=== PATIENT | male | born 1955 | race Caucasian/White ===

== ENCOUNTER 2022-06-09 14:31 | Observation (INO) ==
[2022-06-09 16:53] LABS: Basophils # (auto) 0.03 K/uL (0-0.2); Basophils % (auto) 0.4 %; Eosinophils # (auto) 0.22 K/uL (0-0.50); Eosinophils % (auto) 3.1 %; Hematocrit (blood only) 38.1 % (40.1-51.0); Hemoglobin 12.7 g/dl (14.0-18.0); Immature Granulocytes # (auto) 0.04 K/uL (0.00-0.02); Immature Granulocytes % (auto) 0.6 %; Lymphocytes # (auto) 0.96 K/uL (1.2-3.4); Lymphocytes % (auto) 13.7 %; Mean Corpuscular Hemoglobin 27.1 pg (25.0-34.0); Mean Corpuscular Hgb Conc 33.3 g/dL (32.0-36.0); Mean Corpuscular Volume 81.2 fL (80.0-100.0); Mean Platelet Volume 9.1 fL (9.4-12.4); Monocytes % (auto) 7.1 %; Neutrophils # (auto) 5.25 K/uL (1.4-6.5); Neutrophils % (auto) 75.1 %; Platelet Count 194 K/uL (130-400); RDW Coefficient of Variation 14.6 % (11.5-14.5); RDW Standard Deviation 43.1 fL (36.4-46.3); Red Blood Count 4.69 M/uL (4.63-6.08)
[2022-06-09 17:05] LABS: Appearance Urine Clear (Clear); Bacteria Urine Automated Negative (Negative); Bilirubin Urine Negative (Negative); Blood Urine 2+ (Negative); Color Urine Yellow; Glucose Urine UA Negative (Negative); Ketones Urine Negative (Negative); Leukocyte Esterase Urine Negative (Negative); Nitrite Urine Negative (Negative); Protein Urine 2+ (Negative); Specific Gravity Urine 1.012 (1.000-1.030); Urobilinogen Urine Negative (Negative); pH Urine 5.5 (4.5-7.5)
[2022-06-09 17:19] LABS: Albumin Level 3.5 gm/dl (3.4-5.0); BUN Creatinine Ratio 15.3 (10-20); Bilirubin,Total 0.5 mg/dl (0.2-1.0); Calcium 8.9 mg/dl (8.5-10.1); Creatinine Clr Calc Pharmacy 52.6 ml/min; Est GFR (African American) 39.3 ml/min; Est GFR (Non-African American) 33.9 ml/min; Globulin 3.4 gm/dl (2.5-4.0); Potassium 3.3 mmol/L (3.5-5.1); Total Protein 6.9 gm/dl (6.0-8.3)
[2022-06-09] MEDS ORDERED: VANCOMYCIN HCL 2,750 MG in SODIUM CHLORIDE 0.9% 500 ML IV ONE (18:36)
[2022-06-09] MEDS ORDERED: VANCOMYCIN CONSULT ACTIVE PRN ×2 (18:36→23:48)
[2022-06-09] MEDS ORDERED: CEFEPIME 2,000 MG/20 ML VIAL IV STA (18:36)
[2022-06-09] MEDS ORDERED: metroNIDAZOLE 500 MG/100 ML BAG IV STA (18:36)
[2022-06-09] MEDS ORDERED: ONDANSETRON INJ 2 MG/ML 2 ML VIAL IV STA (18:40)
[2022-06-09] MEDS ORDERED: MoRPHine SULFATE 4 MG/ML 1 ML CARP\\VIAL IV STA (18:40)
[2022-06-09] MEDS ORDERED: MoRPHine SULFATE 4 MG/ML 1 ML CARP\\VIAL IV PRN (18:40)
--- NOTE | 2022-06-09 18:40 | Emergency Department Note ---
Impression & Plan Abscess of scrotum ED Provider Note NAME: MERVAT RUTLEDGE AGE: 67 SEX: M : 1955 ARRIVES VIA: Walk-In INFORMANT: Patient, ED PROVIDER(S): David Patel DO CHIEF COMPLAINT: Scrotal pain HPI: The patient is a 67-year-old male who presented to the emergency department for evaluation of scrotal pain. The patient states that initially this started out as just a small bump on his left testicle. The patient states he was seen by his family doctor and then by urology. He has had multiple studies including ultrasound as well as CAT scan. He most recently had an ultrasound today because of symptoms started to worsen. He came to the emergency department after the ultrasound was felt to be consistent with possible worsening abscess. The patient states he has no fever. He has no vomiting. He has noticed his blood sugars are little high. He has not had any redness. He denies having any rectal bleeding. He said no recent rectal surgery. ROS: See above HPI for pertinent positives & negatives. A total of 10 systems reviewed and were otherwise negative. PAST MEDICAL HISTORY: See Below PAST SURGICAL HISTORY: See Below FAMILY HISTORY: See Below SOCIAL HISTORY: See Below HOME MEDICATIONS: See Below ALLERGIES: See Below VITALS: See Below PHYSICAL EXAMINATION: GENERAL: Patient is awake alert in no acute distress patient is resting comfortably and showing no signs of anxiety EYES: The conjunctivae are clear. The pupils are round and reactive. EARS, NOSE, MOUTH AND THROAT: The nose is without any evidence of any deformity. Mucous membranes are moist. Tongue is midline. NECK: The neck is nontender and supple. RESPIRATORY: Normal respiratory effort is noted there is no evidence of wheezing rhonchi or rales CARDIOVASCULAR: Regular rate and rhythm noted there no murmurs rubs or gallops normal S1 normal S2. GASTROINTESTINAL: The abdomen is soft. Abdomen is nontender. : There is tenderness and induration noted on the left lateral scrotum. It is fluctuant. There is mild overlying erythema but no necrotic tissue. MUSCULOSKELETAL/EXTREMITIES: There is no evidence of gross deformity full range of motion is noted in the hips and shoulders. SKIN: There is no obvious evidence of any rash. NEUROLOGIC: Patient is awake alert and oriented x3 MEDICAL DECISION MAKING: The patient is a 67-year-old diabetic who presented to the emergency department with findings consistent with a scrotal abscess. The patient has had an ongoing outpatient work-up for this abscess. He has had ultrasound and CAT scan. He has been evaluated by his primary care physician. He was treated with antibiotics. The patient was not getting better in fact he was getting worse. The patient was sent for an outpatient ultrasound and after the ultrasound was done the patient was advised to come to the emergency department. The patient's primary urologist did call me and asked me to repeat the CAT scan as there is strong concern that given the patient's past medical history this could be consistent with a deep space infection such as gangrene. I did do a needle aspiration to send a culture. The patient was treated with IV antibiotics. He was also offered pain medication. He was treated with IV fluids. I discussed patient's laboratory and radiographic studies with him. I also discussed his case with the on-call urologist as well as the on-call [facility] hospitalist. They have agreed to evaluate the patient in the emergency department for further management and disposition. Triage Nursing notes reviewed. Prior medical records reviewed Vital Signs: reviewed and remarkable for elevated blood pressure Differential diagnosis: Cellulitis, abscess, MRSA infection, DVT, necrotizing fasciitis, dermatitis, drug eruption, allergic reaction, as well as other pathologies. ER treatment provided: See below Diagnostics interpreted by me: ECG: none Cardiac Monitoring: An order was placed for continuous cardiac monitoring. The monitor shows a rate of 74 bpm with sinus rhythm. Laboratory studies: As stated above and show below. Imaging studies: See below. Radiographic imaging was reviewed by myself Consultation(s): I discussed this case with Benjamin who is on for the urology group. They will evaluate the patient in the emergency department. I discussed this case with Dr. Tolliver [facility]. Past Med/Surg History Medical History Apical mural thrombus Ascending aortic aneurysm Chronic kidney disease, stage 3 Chronic kidney disease, stage 4 (severe) Chronic systolic CHF (congestive heart failure) Coronary artery disease DVT (deep venous thrombosis) Hypercholesterolemia Hypertension Ischemic cardiomyopathy Myocardial infarct Severe obstructive sleep apnea Type 2 diabetes mellitus Vitamin D deficiency Surgical History History of tonsillectomy S/P coronary artery stent placement Family History Mother Colorectal cancer Diabetes Heart disease Hypertension Myocardial infarction Father Osteoarthritis Grandfather (Maternal) Asthma Denies family history of Ovarian cancer Prostate cancer Alzheimer disease Depression Kidney disease Breast cancer Lung cancer COPD (chronic obstructive pulmonary disease) Stroke Social History Smoking Status: Never smoker Second Hand Exposure: No; Hx Alcohol Use: No Hx Substance Use: No Preferred Language: Cape Verdean Communication Ability: Effective Hearing Ability: Normal Children'S Choir Director Required: No marital status: Current Living Situation: Family Current Living Situation Comment: spouse and son current occupational status: retired How many Children do You have: 2 Feels Safe at Home: Yes Childhood Exposure to Second-Hand Smoke: Yes Dental Care, Regularly: Yes Seatbelt Use: sometimes Sunscreen Use: Yes Allergies Allergies Allergy/AdvReac Type Severity Reaction Status Date / Time latex Allergy Mild RASH Verified 06/09/22 12:05 penicillin V Allergy Mild NOT SURE Verified 06/09/22 12:05 adhesive tape Allergy Unknown Verified 06/09/22 12:05 saxagliptin [From Onglyza] Allergy Unknown Verified 06/09/22 12:05 shellfish derived Allergy Unknown ANAPHYLAXIS Verified 06/09/22 12:05 Home Meds Home Medications Medication Instructions Recorded Confirmed sacubitril 97 mg-valsartan 103 mg 0.5 tab PO BID 12/08/21 06/09/22 tablet (Entresto) Previous Rx's Medication Instructions Recorded pen needle, diabetic 31 gauge x #200 ea 07/12/19/16" (BD Ultra-Fine Short Pen Needle) CPAP Supplies #1 ea 02/04/20 clopidogrel 75 mg tablet 75 mg PO DAILY #90 tabs 06/07/21 rosuvastatin 40 mg tablet 40 mg PO DAILY #90 tabs 07/28/21 ergocalciferol (vitamin D2) 1,250 50,000 unit PO WEEKLY #14 caps 12/08/21 mcg (50,000 unit) capsule apixaban 5 mg tablet (Eliquis) 5 mg PO BID #180 tabs 12/09/21 amlodipine 10 mg tablet 5 mg PO DAILY #90 tabs 02/01/22 allopurinol 100 mg tablet 100 mg PO DAILY #90 tabs 02/25/22 blood-glucose meter,continuous #1 ea 03/09/22 (Dexcom G6 Propulsion Machinery Service Engineer) blood-glucose sensor (Dexcom G6 #3 ea 03/09/22 Sensor device) blood-glucose transmitter (Dexcom #1 ea 03/09/22 G6 Transmitter device) carvedilol 25 mg tablet 25 mg PO BID #180 tabs 03/11/22 bumetanide 2 mg tablet See Rx Instructions .Route 04/27/22 .COMPLEX #270 tabs insulin glargine 100 unit/mL (3 42 unit (0.42 mL) subcut BID #60 mL 05/04/22 mL) subcutaneous pen (Lantus Solostar U-100 Insulin) insulin aspart U-100 100 unit/mL 32 unit (0.32 mL) subcut BID #45 mL 05/30/22 (3 mL) subcutaneous pen (Novolog FlexPen U-100 Insulin aspart) Bifidobacterium infantis 4 mg 4 mg PO BID #60 caps 06/09/22 capsule (Align) clindamycin HCl 300 mg capsule 300 mg PO Q6H #40 caps 06/09/22 Results & Data (ED) Vital Signs Vital Signs - 24 hr 06/09/22 14:44 06/09/22 18:36 06/09/22 21:49 Temperature 36.3 C L Temperature Source Temporal Artery Scan Pulse Rate 80 Pulse Rate [Apical] 75 74 Pulse Rhythm [Apical] Regular Pulse Strength [Apical] Normal Respiratory Rate 16 16 20 Respiratory Effort / Characteristics Non-Labored Non-Labored Non-Labored Respiratory Depth Normal Normal Normal Respiratory Pattern Regular Regular Blood Pressure 135/64 Blood Pressure [Left Arm] 158/106 H 163/97 H Blood Pressure Mean 87 Blood Pressure Mean [Left Arm] 123 119 Blood Pressure Position [Left Arm] Lying Pulse Oximetry 93 97 95 Oxygen Delivery Method Room Air Room Air Room Air Sepsis Recent Fever Within 48 Hours No Sepsis New/Unexplained Change in Mental Status Yes Sepsis Action Taken by Nursing No Action Required Home Medications Current Medication List: was personally reviewed by me Laboratory Data Attestation: I reviewed the patient's lab results. 06/09/22 16:30 06/09/22 16:30 Lab Results 06/09/22 06/09/22 06/09/22 Range/Units 16:30 16:30 16:30 WBC 7.00 (4.8-10.8) K/ul RBC 4.69 (4.63-6.08) M/uL Hgb 12.7 L (14.0-18.0) g/dl Hct 38.1 L (40.1-51.0) % MCV 81.2 (80.0-100.0) fL MCH 27.1 (25.0-34.0) pg MCHC 33.3 (32.0-36.0) g/dL RDW Std Deviation 43.1 (36.4-46.3) fL RDW Coeff of Summer 14.6 H (11.5-14.5) % Plt Count 194 (130-400) K/uL MPV 9.1 L (9.4-12.4) fL Immature Gran % (Auto) 0.6 % Neut % (Auto) 75.1 % Lymph % (Auto) 13.7 % Donley % (Auto) 7.1 % Eos % (Auto) 3.1 % Baso % (Auto) 0.4 % Neut # (Auto) 5.25 (1.4-6.5) K/uL Lymph # (Auto) 0.96 L (1.2-3.4) K/uL Donley # (Auto) 0.50 (0.24-0.82) K/uL Eos # (Auto) 0.22 (0-0.50) K/uL Baso # (Auto) 0.03 (0-0.2) K/uL Immature Gran # (Auto) 0.04 H (0.00-0.02) K/uL ESR 61 H (0-20) mm/hr Sodium 142 (136-145) mmol/L Potassium 3.3 L (3.5-5.1) mmol/L Chloride 105 (98-107) mmol/L Carbon Dioxide 32 (21-32) mmol/L Anion Gap 5 (3-11) BUN 30 H (6-23) mg/dl Creatinine 1.96 H (0.6-1.4) mg/dl Est Cr Clr Drug Dosing 52.6 ml/min Est GFR ( Amer) 39.3 ml/min Est GFR (Non-Af Amer) 33.9 ml/min BUN/Creatinine Ratio 15.3 (10-20) Glucose 143 H (70-99(Fasting)) mg/dl POC Glucose (70-99) mg/dl Calcium 8.9 (8.5-10.1) mg/dl Total Bilirubin 0.5 (0.2-1.0) mg/dl AST 15 (13-39) U/L ALT 15 (7-52) U/L Alkaline Phosphatase 95 (34-104) U/L C-Reactive Protein (0-0.5) mg/dl Total Protein 6.9 (6.0-8.3) gm/dl Albumin 3.5 (3.4-5.0) gm/dl Globulin 3.4 (2.5-4.0) gm/dl Albumin/Globulin Ratio 1.0 (0.9-2) Procalcitonin (0-0.5) ng/ml Urine Color Urine Appearance (Clear) Urine pH (4.5-7.5) Ur Specific [place] (1.000-1.030) Urine Protein (Negative) Urine Glucose (UA) (Negative) Urine Ketones (Negative) Urine Blood (Negative) Urine Nitrite (Negative) Urine Bilirubin (Negative) Urine Urobilinogen (Negative) Ur Leukocyte Esterase (Negative) Urine WBC (Auto) (0-5) /hpf Urine RBC (Auto) (0-4) /hpf U Hyaline Cast (Auto) (0-5) /lpf U Epithel Cells (Auto) (0-5) /lpf Urine Bacteria (Auto) (Negative) SARS-CoV-2, RNA, NAAT (NEGATIVE) 06/09/22 06/09/22 06/09/22 Range/Units 16:30 16:30 16:37 WBC (4.8-10.8) K/ul RBC (4.63-6.08) M/uL Hgb (14.0-18.0) g/dl Hct (40.1-51.0) % MCV (80.0-100.0) fL MCH (25.0-34.0) pg MCHC (32.0-36.0) g/dL RDW Std Deviation (36.4-46.3) fL RDW Coeff of Summer (11.5-14.5) % Plt Count (130-400) K/uL MPV (9.4-12.4) fL Immature Gran % (Auto) % Neut % (Auto) % Lymph % (Auto) % Donley % (Auto) % Eos % (Auto) % Baso % (Auto) % Neut # (Auto) (1.4-6.5) K/uL Lymph # (Auto) (1.2-3.4) K/uL Donley # (Auto) (0.24-0.82) K/uL Eos # (Auto) (0-0.50) K/uL Baso # (Auto) (0-0.2) K/uL Immature Gran # (Auto) (0.00-0.02) K/uL ESR (0-20) mm/hr Sodium (136-145) mmol/L Potassium (3.5-5.1) mmol/L Chloride (98-107) mmol/L Carbon Dioxide (21-32) mmol/L Anion Gap (3-11) BUN (6-23) mg/dl Creatinine (0.6-1.4) mg/dl Est Cr Clr Drug Dosing ml/min Est GFR ( Amer) ml/min Est GFR (Non-Af Amer) ml/min BUN/Creatinine Ratio (10-20) Glucose (70-99(Fasting)) mg/dl POC Glucose (70-99) mg/dl Calcium (8.5-10.1) mg/dl Total Bilirubin (0.2-1.0) mg/dl AST (13-39) U/L ALT (7-52) U/L Alkaline Phosphatase (34-104) U/L C-Reactive Protein 3.09 H (0-0.5) mg/dl Total Protein (6.0-8.3) gm/dl Albumin (3.4-5.0) gm/dl Globulin (2.5-4.0) gm/dl Albumin/Globulin Ratio (0.9-2) Procalcitonin 0.09 (0-0.5) ng/ml Urine Color Yellow Urine Appearance Clear (Clear) Urine pH 5.5 (4.5-7.5) Ur Specific [place] 1.012 (1.000-1.030) Urine Protein 2+ H (Negative) Urine Glucose (UA) Negative (Negative) Urine Ketones Negative (Negative) Urine Blood 2+ H (Negative) Urine Nitrite Negative (Negative) Urine Bilirubin Negative (Negative) Urine Urobilinogen Negative (Negative) Ur Leukocyte Esterase Negative (Negative) Urine WBC (Auto) 1-5 (0-5) /hpf Urine RBC (Auto) 5-10 H (0-4) /hpf U Hyaline Cast (Auto) 5-10 H (0-5) /lpf U Epithel Cells (Auto) 10-20 H (0-5) /lpf Urine Bacteria (Auto) Negative (Negative) SARS-CoV-2, RNA, NAAT (NEGATIVE) 06/09/22 06/09/22 Range/Units 18:24 21:11 WBC (4.8-10.8) K/ul RBC (4.63-6.08) M/uL Hgb (14.0-18.0) g/dl Hct (40.1-51.0) % MCV (80.0-100.0) fL MCH (25.0-34.0) pg MCHC (32.0-36.0) g/dL RDW Std Deviation (36.4-46.3) fL RDW Coeff of Summer (11.5-14.5) % Plt Count (130-400) K/uL MPV (9.4-12.4) fL Immature Gran % (Auto) % Neut % (Auto) % Lymph % (Auto) % Donley % (Auto) % Eos % (Auto) % Baso % (Auto) % Neut # (Auto) (1.4-6.5) K/uL Lymph # (Auto) (1.2-3.4) K/uL Donley # (Auto) (0.24-0.82) K/uL Eos # (Auto) (0-0.50) K/uL Baso # (Auto) (0-0.2) K/uL Immature Gran # (Auto) (0.00-0.02) K/uL ESR (0-20) mm/hr Sodium (136-145) mmol/L Potassium (3.5-5.1) mmol/L Chloride (98-107) mmol/L Carbon Dioxide (21-32) mmol/L Anion Gap (3-11) BUN (6-23) mg/dl Creatinine (0.6-1.4) mg/dl Est Cr Clr Drug Dosing ml/min Est GFR ( Amer) ml/min Est GFR (Non-Af Amer) ml/min BUN/Creatinine Ratio (10-20) Glucose (70-99(Fasting)) mg/dl POC Glucose 91 (70-99) mg/dl Calcium (8.5-10.1) mg/dl Total Bilirubin (0.2-1.0) mg/dl AST (13-39) U/L ALT (7-52) U/L Alkaline Phosphatase (34-104) U/L C-Reactive Protein (0-0.5) mg/dl Total Protein (6.0-8.3) gm/dl Albumin (3.4-5.0) gm/dl Globulin (2.5-4.0) gm/dl Albumin/Globulin Ratio (0.9-2) Procalcitonin (0-0.5) ng/ml Urine Color Urine Appearance (Clear) Urine pH (4.5-7.5) Ur Specific [place] (1.000-1.030) Urine Protein (Negative) Urine Glucose (UA) (Negative) Urine Ketones (Negative) Urine Blood (Negative) Urine Nitrite (Negative) Urine Bilirubin (Negative) Urine Urobilinogen (Negative) Ur Leukocyte Esterase (Negative) Urine WBC (Auto) (0-5) /hpf Urine RBC (Auto) (0-4) /hpf U Hyaline Cast (Auto) (0-5) /lpf U Epithel Cells (Auto) (0-5) /lpf Urine Bacteria (Auto) (Negative) SARS-CoV-2, RNA, NAAT NEGATIVE (NEGATIVE) Administered Medications Discontinued Medications Metronidazole (Flagyl) 500 mg in 100 mls @ 100 mls/hr IV NOW STA Stop: 06/09/22 19:35 Last Infusion: 06/09/22 20:51 Dose: 0 mls/hr Documented By: Admin: 06/09/22 19:47 Dose: 100 mls/hr Documented By: ANA Cefepime HCl (Maxipime) 2,000 mg in 20 mls @ 5 mls/min IV NOW STA; Protocol Stop: 06/09/22 18:39 Last Admin: 06/09/22 18:51 Dose: 5 mls/min Documented By: JES Vancomycin HCl 2,750 mg/ (Sodium Chloride) 555 mls @ 200 mls/hr IV NOW ONE Stop: 06/09/22 21:23 Last Admin: 06/09/22 20:58 Dose: 200 mls/hr Documented By: ARMIN Acetaminophen (Ofirmev) 1,000 mg in 100 mls @ 400 mls/hr IV NOW STA Stop: 06/09/22 19:17 Last Infusion: 06/09/22 19:35 Dose: 0 mls/hr Documented By: Admin: 06/09/22 19:06 Dose: 400 mls/hr Documented By: JES Lidocaine HCl (Xylocaine 1%/Sod Bicarb 20 Ml Vial) 20 ml INFIL NOW ONE Stop: 06/09/22 19:39 Last Admin: 06/09/22 21:01 Dose: 20 ml Documented By: [id number] Morphine Sulfate (Morphine Sulfate 4 Mg/Ml 1 Ml Carp\\Vial) 4 mg IV NOW STA Stop: 06/09/22 18:41 Last Admin: 06/09/22 19:02 Dose: Not Given Documented By: JES Ondansetron HCl (Ondansetron Inj 2 Mg/Ml 2 Ml Vial) 4 mg IV NOW STA Stop: 06/09/22 18:41 Last Admin: 06/09/22 19:02 Dose: Not Given Documented By: JES Imaging Data Radiologist's Impression: Abdomen/Pelvis CT 06/09/22 17:38 CT abd pelvis wo con CLINICAL HISTORY: abscess TECHNIQUE: Helical axial images of the abdomen and pelvis were obtained. Automated dose lowering techniques and/or adjustment according to patient size were utilized for this exam. This exam was performed without intravenous contrast. CT DOSE: 1408.87 mGycm COMPARISON: Comparison is made to CT abdomen pelvis 05/04/2022 FINDINGS: Lower chest: Stable 2 mm nodule in the left lower lobe (series 3 image 31). Liver: Unremarkable. No focal lesions are seen. Gallbladder and biliary tree: No calcified gallstones. Normal caliber wall. No intra- or extrahepatic biliary ductal dilation. Pancreas: Unremarkable, no focal lesions. Spleen: Unremarkable. Adrenals: Stable right myelolipoma. Kidneys and ureters: Perinephric stranding is noted bilaterally. Bladder: Diffuse homogeneous wall thickening is seen. There is may represent chronic outlet obstruction. Reproductive organs: Unremarkable. Bowel: Diverticulosis is noted without diverticulitis. The appendix is normal. Lymph nodes Retroperitoneal: Unremarkable. Pelvic: Unremarkable. Mesenteric: Unremarkable. Peritoneum: Normal. Vessels: Atherosclerotic calcifications are seen. Abdominal wall: In the left scrotal wall, there is a 34 mm fluid density with surrounding soft tissue swelling. Bones: Degenerative changes in the visualized spine. IMPRESSION: 1. There is a left groin abscess/phlegmon with surrounding soft tissue swelling. 2. Diverticulosis without diverticulitis. 3. Additional findings as above. ACT 112: Negative or not required by law. Electronically signed by: Garrett Caceres M.D. 06/09/2022 6:36 PM Discharge Plan Visit Data Chief Complaint: Groin Pain Stated Complaint: ABCESS IN GROIN AREA ED Provider: David Patel Discharge Problem: Abscess of scrotum Patient Disposition: Being Evaluated by Hospitalist Forms Stand Alone Forms: My [facility] Valuation App Prescriptions Prescriptions: No Action (DME) pen needle, diabetic [BD Ultra-Fine Short Pen Needle] 31 gauge x 5/16" needle See Dose Instructions .ROUTE .MEDSUPPLY Qty: 200 5RF Dose Instruction: As directed Rx Instructions: use three times daily as directed (DME) CPAP Supplies See Rx Instructions .Route .MEDSUPPLY Qty: 1 0RF Rx Instructions: Full face mask with head gear, Airsupply tubing, disposable and nondisposable filters, interface and water chamber DX:OSMAN clopidogrel 75 mg tablet 75 mg PO DAILY Qty: 90 3RF rosuvastatin 40 mg tablet 40 mg PO DAILY Qty: 90 3RF Eliquis 5 mg tablet 5 mg PO BID Qty: 180 3RF allopurinol 100 mg tablet 100 mg PO DAILY Qty: 90 3RF carvedilol 25 mg tablet 25 mg PO BID Qty: 180 3RF Rx Instructions: must administer with a meal/food bumetanide 2 mg tablet See Rx Instructions .ROUTE .COMPLEX Qty: 270 0RF Hold Instructions: MEAGHAN Dose Instruction: TAKE 1 & 1/2 (ONE & ONE-HALF) TABLETS BY MOUTH TWICE DAILY Rx Instructions: TAKE 1 & 1/2 (ONE & ONE-HALF) TABLETS BY MOUTH TWICE DAILY insulin glargine [Lantus Solostar U-100 Insulin] 100 unit/mL (3 mL) insulin pen 42 unit subcut BID Qty: 60 3RF insulin aspart U-100 [Novolog FlexPen U-100 Insulin] 100 unit/mL (3 mL) insulin pen 32 unit subcut BID Qty: 45 3RF (DME) Dexcom G6 Transmitter Device See Rx Instructions .Route Qty: 1 0RF Rx Instructions: As directed check BS 4x/day Dx E11.9 (DME) Dexcom G6 Sensor Device See Rx Instructions .Route Qty: 3 5RF Rx Instructions: As directed Test 4 x a day and Dx E11.9 (DME) Dexcom G6 Propulsion Machinery Service Engineer Misc See Rx Instructions .Route Qty: 1 0RF Rx Instructions: As directed test 4 x/day and Dx E11.9 Entresto 97-103 mg tablet 0.5 tab PO BID Hold Instructions: MEAGHAN/Hyperkalemia ergocalciferol (vitamin D2) 1,250 mcg (50,000 unit) capsule 50,000 unit PO WEEKLY Qty: 14 2RF amlodipine 10 mg tablet 5 mg PO DAILY Qty: 90 1RF clindamycin HCl 300 mg capsule 300 mg PO Q6H Qty: 40 0RF Align 4 mg capsule 4 mg PO BID Qty: 60 0RF Referrals Referrals: Chava Stark MD [Primary Care Provider] -
[2022-06-09] MEDS ORDERED: ACETAMINOPHEN 1,000 MG/100 ML VIAL IV STA (19:03)
[2022-06-09] MEDS ORDERED: XYLOCAINE 1%/SOD BICARB 20 ML VIAL INFIL ONE (19:38)
--- NOTE | 2022-06-09 20:10 | Urology Consultation ---
Date of Consultation June 09, 2022 Assessment & Plan (1) Perineal abscess: Due to the patient's clinical presentation and findings on imaging along with the fact that he is diabetic the treating emergency room physician is having the patient mid on the hospitalist service. We recommend proceeding as follows: I discussed the case with Dr. Robledo of urology my attending physician and he is planning on performing a bedside incision and drainage of the affected area this evening. He says that he will place appropriate wound packing. He then notes that he will reexamine the wound tomorrow and determine if the patient will need a more formal washout in the emergency department. Would recommend continuing broad-spectrum antibiotics. Appropriate cultures have been sent by the treating emergency room physician and antibiotics to be further tailored by the these results The patient is diabetic and adequate glycemic control be optimal to prevent good healing. Additional recommendations be forthcoming based on findings at time of incision and drainage as well as the patient's clinical course as unfolds Additional recommendations as recommended by the primary service Attending note: Patient independently assessed, examined, evaluated, and interviewed. Agree with note as above. Patient's imaging has been reviewed interpreted by myself. Patient has a approximately 3.8 cm abscess in the left scrotal/inguinal region with tracking along the inguinal tract. No signs of crepitus on examination. No signs of air or other issues or signs of infection traveling along fascial lines. Patient had undergone attempted aspiration in the ER. Had been placed on broad-spectrum antibiotics. Initially patient had presented for imaging from his primary care doctor concern for abscess was seen on ultrasound. Patient presented to the ER with possible abscess with concern for development of more significant infection with patient's known diabetes, obesity, and other chronic medical issues. Patient is in chronic kidney disease. Has previously had abscesses in the groin. Patient's creatinine is currently 1.96. This is actually better than his creatinine has been at times. His white count has not been considerably elevated. Came back as 7.0. Patient is on Eliquis at home. Took a dose this morning. Has not had considerable bleeding. Hemoglobin was assessed currently 12.7. Patient CT scan once completed was reviewed interpreted by myself as well. Findings were consistent with what was seen on the ultrasound however more concerning for an abscess cavity. Discussed this extensively with patient. Reviewed different options including possible surgical intervention. Discussed options such as bedside procedure for drainage of lesion. On assessment patient had no signs of skin necrosis. Did have a severely indurated mildly tender and fluctuant area in the inguinal/scrotal junction region with tracking down towards the scrotum and up into the inguinal region. Moderate erythema was noted. Patient had been given broad-spectrum antibiotics by the ER. Has been dealing with previous abscesses in the past. Patient's complicated medical and surgical history was reviewed and summarized as above. Please see the patient's history section for a full report. Patient's systems were all reviewed. Pertinent positive negatives are found in the HPI or in the review of systems section. Discussed extensively options for bedside incision and drainage patient was most interested in proceeding with this. Patient agreed to sign consent. This was witnessed by the nursing staff at the ER. A timeout was completed confirming the right patient location and plan for incision and drainage of scrotal abscess. Incision and drainage of scrotal abscess, bedside Indications for the procedure: Significant scrotal abscess Risks, benefits, alternatives, risk of bleeding, infection risks and possible injury to the genital, scrotum, or testicle were discussed with the patient. Consent was obtained prior to the procedure and is detailed in the patient's record. Prior to the start of the procedure, a time out was taken and the identity of the patient was confirmed via name and date of by the patient. The correct site and the procedure to be performed were confirmed. Procedure Note: The patient was placed in the supine position. The patient was prepped and draped in the usual sterile fashion using Betadine The spermatic cord as well as the area of abscess on the left side was isolated. A 1% lidocaine solution was injected first into the skin above the fluctuant area and then an additional lidocaine was injected into the spermatic cord and surrounding tissues after aspirating to confirm no bleeding. This was tolerated well. There was some mild burning with the injection. Patient did have a mild amount of burning during the remainder of the procedure. After adequate time for the local anesthetic to take effect. The area was once again prepped again with Betadine. A scalpel was used to make a an approximately 1.5 cm incision into the scrotal tissue. A small amount of bloody drainage was appreciated. This was probed with a culture swab. A finger was then utilized to probe and assess the wound. Numerous loculations were appreciated. On breaking of the more deep loculations towards the scrotal region a large pocket of significantly purulent material was appreciated drainage from the wound. The material was foul-smelling and a dark brown/old blood appearing fluid. This was aspirated utilizing a empty syringe. Both the wound swab as well as the aspirated fluid was sent for culture analysis. Further probing with the finger additional loculations were able to be destroyed and further broken up. Of the wound cavity was inspected. Copious flushings were completed utilizing normal saline. Additional fluid and debris was able to be irrigated free. No signs of necrotic tissue or significant issues within the wound. The final wound dimension cavity was approximately a circular region running from the scrotum up into the inguinal region and was approximately 5 cm in diameter. Additional flushing was completed. The patient was cleaned. He had tolerated the procedure without major issue and only had mild burning during the process. Did not have significant issues or major bleeding during the procedure. Patient is known to be on Eliquis. He had taken this this morning. No major areas of bleeding were noted. The tissue was noted to be healthy appearing without signs of significant necrosis or devascularization. With the wound thoroughly cleaned. The area was inspected a final time. Iodoform packing was then placed into the wound cavity. The iodoform packing was placed with a single piece of folded in half with the 2 ends outside of the wound to allow for easy removal. The entire abscess cavity was able to be packed well without major issue. The area was cleaned a final time. Gauze was placed over the wound. The patient tolerated the procedure well. There were no complications. Patient Status: The patient tolerated the procedure well. Complications: No complications. Had Discussed risks and benefits of procedure, consisting but not limited to infection, bleeding, or injury. Discussed possible development of necrotizing fasciitis and more significant infection with necrosis and possible considerable issues with scrotal abscesses in a diabetic with multiple comorbidities. Long conversation of post-operative care and management. Discussed wound care and activity afterwards. Patient is going to be admitted to the hospitalist team. He will continue on broad-spectrum antibiotics. We will await the culture results. We will place a referral to wound care to assist in wound management in the post procedure.. Will have patient's packing removed tomorrow and repacked at bedside either with the wound care team or with our nursing. Patient will likely need to be set up for packing exchange and continued wound management as an outpatient. In the interim patient can utilize conservative measures such as scrotal elevation as well as ice for pain and discomfort. We will likely need to continue IV antibiotics until able to de-escalate to an oral antibiotic. We will likely need to complete the complete antibiotic course in order to fully clear any potential infection issues. If any issues or bleeding or pain, Ice to be used 20 mins on and 20 mins off as needed. Until patient is healed and wound has resolved, would avoid over activity or any contact sports/activity. Okay to wash or shower starting tomorrow. Would recommend avoiding long soak, bath, or swimming. Patient may be able to utilize sitz bath's if needed. Monitor for swelling or redness or pain. Call with any issues or fevers. Will monitor the patient with plans to reassess if issues worsen or more considerable infection develops. Will await consultation from the wound care nurses and develop a final plan for wound care after this procedure. Otherwise we will monitor with plans for follow-up in the office likely in 1 to 2 weeks for reassessment History of Present Illness Reason for Consultation: Scrotal/left groin abscess History of Present Illness This is a 67-year-old male who presented to the emergency department due to concern for a scrotal/left groin abscess. The patient says that his initial problems began in mid April 2022. The patient says that he had an itch in his left groin and upon scratching it subsequently thereafter he developed a lump in his left groin/scrotum. At that time the patient had a CT scan of his abdomen pelvis on 05/04/2022 which showed no findings indicative of an infection. He ultimately had a scrotal ultrasound on 05/04/2022 that showed that he had concern for developing scrotal abscess measuring 7 x 7 x 9 mm. The patient says that due to the small size he was not placed on antibiotics and clinical monitoring was employed. He says that he felt that the area may have improved and was not really giving him any problems. The patient says that he did have routine follow-up employed with his family physician this week. The patient notes that on 06/03/2022 he did undergo a CT scan of the abdomen pelvis that again showed no findings indicative of infection. He did have a repeat scrotal ultrasound today that showed the patient had findings concerning for an enlarging abscess measuring 3.5 x 2.4 x 2.5 cm. Because of these findings he was referred by his family physician to the emergency department. In the emergency department today the patient did have a CT scan of the abdomen pelvis that showed the patient had a left groin abscess/phlegmon with surrounding soft tissue swelling. Labs were performed that showed a CBC with a white blood cell count and platelet count within the normal range. Hemoglobin hematocrit were 12.7 and 38.1. Chemistry profile showed sodium was 142 with a potassium of 3.3. His BUN and creatinine were 30 and 1.9. This level of renal function was near his baseline. There is no elevation of patient's LFTs. Urinalysis was not indicative of infection and a COVID test was negative. The patient notes that the area in his left groin is not giving him much in the way of problems. He says that it is warm but is not painful. He says that he has had no drainage whatsoever since this problem began. He has not had any fevers, shakes, or chills. He notes he is not diabetic. His most recent oral intake was at approximately 10:00 AM today. The patient also notes that he does take Eliquis and he did take his dose this morning. Since arrival to the emergency department the patient has received antibiotics in the form of cefepime, Flagyl, and vancomycin. He has been noted to be nontachycardic without hypotension and afebrile since arrival to the emergency department. He was in no distress at the time of my interview. Allergies Allergy/AdvReac Type Severity Reaction Status Date / Time latex Allergy Mild RASH Verified 06/09/22 12:05 penicillin V Allergy Mild NOT SURE Verified 06/09/22 12:05 adhesive tape Allergy Unknown Verified 06/09/22 12:05 saxagliptin [From Onglyza] Allergy Unknown Verified 06/09/22 12:05 shellfish derived Allergy Unknown ANAPHYLAXIS Verified 06/09/22 12:05 Home Medications Medication Instructions Recorded Confirmed Type pen needle, diabetic 31 gauge x #200 ea 07/12/19 06/09/22 Rx 5/16" (BD Ultra-Fine Short Pen Needle) CPAP Supplies #1 ea 02/04/20 06/09/22 Rx clopidogrel 75 mg tablet 75 mg PO DAILY #90 tabs 06/07/21 06/09/22 Rx rosuvastatin 40 mg tablet 40 mg PO DAILY #90 tabs 07/28/21 06/09/22 Rx ergocalciferol (vitamin D2) 1,250 50,000 unit PO WEEKLY #14 caps 12/08/21 06/09/22 Rx mcg (50,000 unit) capsule sacubitril 97 mg-valsartan 103 mg 0.5 tab PO BID 12/08/21 06/09/22 History tablet (Entresto) apixaban 5 mg tablet (Eliquis) 5 mg PO BID #180 tabs 12/09/21 06/09/22 Rx amlodipine 10 mg tablet 5 mg PO DAILY #90 tabs 02/01/22 06/09/22 Rx allopurinol 100 mg tablet 100 mg PO DAILY #90 tabs 02/25/22 06/09/22 Rx blood-glucose meter,continuous #1 ea 03/09/22 06/09/22 Rx (Dexcom G6 Air Battle Manager) blood-glucose sensor (Dexcom G6 #3 ea 03/09/22 06/09/22 Rx Sensor device) blood-glucose transmitter (Dexcom #1 ea 03/09/22 06/09/22 Rx G6 Transmitter device) carvedilol 25 mg tablet 25 mg PO BID #180 tabs 03/11/22 06/09/22 Rx bumetanide 2 mg tablet See Rx Instructions .Route 04/27/22 06/09/22 Rx .COMPLEX #270 tabs insulin glargine 100 unit/mL (3 42 unit (0.42 mL) subcut BID #60 mL 05/04/22 Rx mL) subcutaneous pen (Lantus Solostar U-100 Insulin) insulin aspart U-100 100 unit/mL 32 unit (0.32 mL) subcut BID #45 mL 05/30/22 06/09/22 Rx (3 mL) subcutaneous pen (Novolog FlexPen U-100 Insulin aspart) Bifidobacterium infantis 4 mg 4 mg PO BID #60 caps 06/09/22 06/09/22 Rx capsule (Align) clindamycin HCl 300 mg capsule 300 mg PO Q6H #40 caps 06/09/22 06/09/22 Rx Patient History Medical History Apical mural thrombus Ascending aortic aneurysm Chronic kidney disease, stage 3 Chronic kidney disease, stage 4 (severe) Chronic systolic CHF (congestive heart failure) Coronary artery disease DVT (deep venous thrombosis) Hypercholesterolemia Hypertension Ischemic cardiomyopathy Myocardial infarct Severe obstructive sleep apnea Type 2 diabetes mellitus Vitamin D deficiency Surgical History History of tonsillectomy S/P coronary artery stent placement Family History Mother Colorectal cancer Diabetes Heart disease Hypertension Myocardial infarction Father Osteoarthritis Grandfather (Maternal) Asthma Denies family history of Ovarian cancer Prostate cancer Alzheimer disease Depression Kidney disease Breast cancer Lung cancer COPD (chronic obstructive pulmonary disease) Stroke Social History Smoking Status: Never smoker Second Hand Exposure: No; Hx Alcohol Use: No Hx Substance Use: No Preferred Language: Welsh Communication Ability: Effective Hearing Ability: Normal Marketing Officer 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: No marital status: Current Living Situation: Family Current Living Situation Comment: spouse and son current occupational status: retired How many Children do You have: 2 Feels Safe at Home: Yes Childhood Exposure to Second-Hand Smoke: Yes Dental Care, Regularly: Yes Seatbelt Use: sometimes Sunscreen Use: Yes Review of Systems Constitutional: no fever and no chills Eyes: no eye pain Ear, Nose, Mouth, Throat: no ear pain Respiratory: no cough and no dyspnea Cardiovascular: no chest pain Gastrointestinal: no abdominal pain, no nausea and no vomiting Genitourinary: + as per Subjective / HPI and + scrotal swelling Musculoskeletal: no back pain Integumentary: no rash Neurologic: no localized weakness Physical Exam Constitutional: WD/WN, vitals as above Eyes: Wears glasses ENMT: Ears: no hearing impairment and no external ear abnormality Mouth: no oropharynx abnormality Neck: trachea midline Respiratory: normal respiratory effort; no respiratory distress and no labored breathing Cardiovascular: Rate/Rhythm: regular rate and regular rhythm Gastrointestinal (Abdomen): Soft and rotund. There is no pain with palpation. Musculoskeletal: No calf tenderness Skin: normal turgor Neurologic: moves all extremities Psychiatric: A+Ox3, euthymic affect Genitourinary: The patient's genital/perineum were examined. On the left side of patient's scrotum the patient did have an area of induration without obvious fluctuance. There is no drainage noted from this area. The area is erythematous and warm. There is no crepitus noted in the soft tissue. The patient's penile shaft not appear to be affected by this process. The patient's perineum was examined and there are no areas of crepitus in the soft tissue. There is no evidence of erythema or warmth in the perianal area. There are no areas of eschar. Results & Data ([facility]) Vital Signs (Past 12 Hours) Vital Signs Temp Pulse Pulse Resp BP BP Pulse Ox 06/09/22 18:36 75 16 158/106 H 97 06/09/22 14:44 36.3 C L 80 16 135/64 93 O2 Del Method 06/09/22 18:36 Room Air 06/09/22 14:44 Room Air PG Care Time/CCT Total # of Minutes Spent Total Time Spent with Patient: Total time spent is greater than 50% in coordination of care (as documented) at patient's floor/unit and/or counseling patient: Coding Level of Care Code 84341 INT INP/OBS CARE 3/75MIN Diagnoses Perineal abscess L02.215
--- NOTE | 2022-06-09 21:42 | History & Physical Report ---
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: (4) Severe obstructive sleep apnea: (5) Vitamin D deficiency: (6) Diabetes: (7) Hypertension: (8) Myocardial infarct: (9) Hypercholesterolemia: (10) Stented coronary artery: Plan Status post I&D of scrotal abscess- Continue vancomycin IV, Flagyl IV and cefepime IV begun in the ED Follow culture and sensitivities of fluid Urology to follow CAD/hypertension/history of stented coronary artery/ischemic cardiomyopathy/chronic HFrEF- Continue amlodipine, bumetanide, carvedilol, clopidogrel, Entresto CKD stage IV- Creatinine 1.96 on admission with range 2.01-4.02 Continue to follow serially Diabetes mellitus continue glargine 42 units subcu, which he takes in the evening only Hold his standard coverage of NovoLog 30 units subcu with meals twice daily Left lower extremity thrombophlebitis history- Resume apixaban when okay with urology Hyperlipidemia- Continue rosuvastatin Gout- Continue allopurinol History of Present Illness Chief Complaint: The patient presents to the emergency department for evaluation of left scrotal pain, for which he was seen in the outpatient office by his family doctor, and then by urology. Primary Care Provider: Chava Stark MD The patient is a 67-year-old male with a past medical history including poorly controlled diabetes mellitus, CKD stage IV, severe OSMAN, spermatocele, thrombophlebitis of left leg, pulmonary nodule, vitamin D deficiency, gout, myocardial infarction, hypertension, CAD, apical mural thrombus, history of coronary artery stent placement, a sending aortic aneurysm chronic HFrEF, ischemic cardiomyopathy and tinea corporis. The patient has been followed in the outpatient setting as noted, and presented to the emergency department with ultrasound that was performed was consistent with a possible worsening abscess. The patient underwent incision and drainage by urology in the ED, and was referred to the hospitalist service for admission for IV antibiotics. Allergies Allergy/AdvReac Type Severity Reaction Status Date / Time latex Allergy Mild RASH Verified 06/09/22 12:05 penicillin V Allergy Mild NOT SURE Verified 06/09/22 12:05 adhesive tape Allergy Unknown Verified 06/09/22 12:05 saxagliptin [From Onglyza] Allergy Unknown Verified 06/09/22 12:05 shellfish derived Allergy Unknown ANAPHYLAXIS Verified 06/09/22 12:05 Home Medications Medication Instructions Recorded Confirmed Type pen needle, diabetic 31 gauge x #200 ea 07/12/19 06/09/22 Rx 5/16" (BD Ultra-Fine Short Pen Needle) CPAP Supplies #1 ea 02/04/20 06/09/22 Rx clopidogrel 75 mg tablet 75 mg PO DAILY #90 tabs 06/07/21 06/09/22 Rx rosuvastatin 40 mg tablet 40 mg PO DAILY #90 tabs 07/28/21 06/09/22 Rx ergocalciferol (vitamin D2) 1,250 50,000 unit PO WEEKLY #14 caps 12/08/21 06/09/22 Rx mcg (50,000 unit) capsule sacubitril 97 mg-valsartan 103 mg 0.5 tab PO BID 12/08/21 06/09/22 History tablet (Entresto) apixaban 5 mg tablet (Eliquis) 5 mg PO BID #180 tabs 12/09/21 06/09/22 Rx amlodipine 10 mg tablet 5 mg PO DAILY #90 tabs 02/01/22 06/09/22 Rx allopurinol 100 mg tablet 100 mg PO DAILY #90 tabs 02/25/22 06/09/22 Rx blood-glucose meter,continuous #1 ea 03/09/22 06/09/22 Rx (Dexcom G6 [employer] Director) blood-glucose sensor (Dexcom G6 #3 ea 03/09/22 06/09/22 Rx Sensor device) blood-glucose transmitter (Dexcom #1 ea 03/09/22 06/09/22 Rx G6 Transmitter device) carvedilol 25 mg tablet 25 mg PO BID #180 tabs 03/11/22 06/09/22 Rx bumetanide 2 mg tablet See Rx Instructions .Route 04/27/22 06/09/22 Rx .COMPLEX #270 tabs insulin glargine 100 unit/mL (3 42 unit (0.42 mL) subcut BID #60 mL 05/04/22 06/09/22 Rx mL) subcutaneous pen (Lantus Solostar U-100 Insulin) insulin aspart U-100 100 unit/mL 32 unit (0.32 mL) subcut BID #45 mL 05/30/22 06/09/22 Rx (3 mL) subcutaneous pen (Novolog FlexPen U-100 Insulin aspart) Bifidobacterium infantis 4 mg 4 mg PO BID #60 caps 06/09/22 06/09/22 Rx capsule (Align) clindamycin HCl 300 mg capsule 300 mg PO Q6H #40 caps 06/09/22 06/09/22 Rx Past Med/Surg History Medical History Apical mural thrombus Ascending aortic aneurysm Chronic kidney disease, stage 3 Chronic kidney disease, stage 4 (severe) Chronic systolic CHF (congestive heart failure) Coronary artery disease DVT (deep venous thrombosis) Hypercholesterolemia Hypertension Ischemic cardiomyopathy Myocardial infarct Severe obstructive sleep apnea Type 2 diabetes mellitus Vitamin D deficiency Surgical History History of tonsillectomy S/P coronary artery stent placement Family History Mother Colorectal cancer Diabetes Heart disease Hypertension Myocardial infarction Father Osteoarthritis Grandfather (Maternal) Asthma Denies family history of Ovarian cancer Prostate cancer Alzheimer disease Depression Kidney disease Breast cancer Lung cancer COPD (chronic obstructive pulmonary disease) Stroke Social History Smoking Status: Never smoker Second Hand Exposure: Yes; Do You Dip or Chew Tobacco: No; Hx Alcohol Use: No Hx Substance Use: No Preferred Language: Albanian Communication Ability: Effective Hearing Ability: Normal 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: No Beliefs That Will Affect Care: None marital status: Current Living Situation: Family Current Living Situation Comment: spouse and son current occupational status: retired How many Children do You have: 2 Other Information That Helps Us Care for You: No Feels Safe at Home: Yes Safety Concerns: Feels Safe At This Time Childhood Exposure to Second-Hand Smoke: Yes Dental Care, Regularly: Yes Seatbelt Use: sometimes Sunscreen Use: Yes Assistive Devices: None, CPAP and Glasses Review of Systems Review of Systems: the patient denies chest pain, palpitations, shortness of breath, dyspnea on exertion, cough, lower extremity swelling, sore throat, fevers, chills, sweats, weight change, fatigue, nausea, vomiting, diarrhea , constipation, abdominal pain, pelvic pain, blood in urine or stool, dysuria, urinary frequency or urgency, lightheadedness, dizziness, headache, memory loss, loss of consciousness, imbalance, focal or generalized weakness, numbness or tingling in arms or legs, generalized arthralgias or myalgias, back or neck pain, or night sweats. The review of systems is otherwise negative other than for that already noted above, and at least 10 systems have been reviewed. Physical Exam Physical Exam: The patient is awake, alert and oriented 3, well developed and well nourished, normocephalic and atraumatic, lying in bed and in no acute distress, status post I&D of scrotal abscess by urology HEENT--PERRL, EOMI, mucous membranes and oropharynx dry. Neck--supple. No JVD. No bruits. Thyroid normal, trachea midline, no adenopathy. Heart--normal S1 and S2. No murmurs, rubs or gallops. Lungs--clear bilaterally, no respiratory distress, no accessory muscle use. Abdomen--normal bowel sounds and soft. Nontender. Nondistended, no hernias or masses, no organomegaly. Extremities--no cyanosis or clubbing. No edema. Dermatologic--status post I&D of left scrotal abscess, otherwise normal skin exam Neurologic--cranial nerves II through XII grossly intact. Rheumatologic-limited exam Psychiatric--normal affect. Results & Data Results & Data ([facility]) Vital Signs (Past 12 Hours) Vital Signs Temp Pulse Pulse Resp BP BP Pulse Ox 06/09/22 18:36 75 16 158/106 H 97 06/09/22 14:44 36.3 C L 80 16 135/64 93 O2 Del Method 06/09/22 18:36 Room Air 06/09/22 14:44 Room Air Laboratory Results Laboratory Results WBC 7.00 K/ul (4.8-10.8) 06/09/22 16:30 RBC 4.69 M/uL (4.63-6.08) 06/09/22 16:30 Hgb 12.7 g/dl (14.0-18.0) L 06/09/22 16:30 Hct 38.1 % (40.1-51.0) L 06/09/22 16:30 MCV 81.2 fL (80.0-100.0) 06/09/22 16:30 MCH 27.1 pg (25.0-34.0) 06/09/22 16: MCHC 33.3 g/dL (32.0-36.0) 06/09/22 16: RDW Std Deviation 43.1 fL (36.4-46.3) 06/09/22 16: RDW Coeff of Summer 14.6 % (11.5-14.5) H 06/09/22 16: Plt Count 194 K/uL (130-400) 06/09/22 16: MPV 9.1 fL (9.4-12.4) L 06/09/22 16:30 Immature Gran % (Auto) 0.6 % 06/09/22 16: Neut % (Auto) 75.1 % 06/09/22 16:30 Lymph % (Auto) 13.7 % 06/09/22 16:30 Will % (Auto) 7.1 % 06/09/22 16:30 Eos % (Auto) 3.1 % 06/09/22 16:30 Baso % (Auto) 0.4 % 06/09/22 16:30 Neut # (Auto) 5.25 K/uL (1.4-6.5) 06/09/22 16:30 Lymph # (Auto) 0.96 K/uL (1.2-3.4) L 06/09/22 16:30 Will # (Auto) 0.50 K/uL (0.24-0.82) 06/09/22 16:30 Eos # (Auto) 0.22 K/uL (0-0.50) 06/09/22 16:30 Baso # (Auto) 0.03 K/uL (0-0.2) 06/09/22 16:30 Immature Gran # (Auto) 0.04 K/uL (0.00-0.02) H 06/09/22 16:30 ESR 61 mm/hr (0-20) H 06/09/22 16:30 Sodium 142 mmol/L (136-145) 06/09/22 16:30 Potassium 3.3 mmol/L (3.5-5.1) L 06/09/22 16:30 Chloride 105 mmol/L (98-107) 06/09/22 16:30 Carbon Dioxide 32 mmol/L (21-32) 06/09/22 16:30 Anion Gap 5 (3-11) 06/09/22 16:30 BUN 30 mg/dl (6-23) H 06/09/22 16:30 Creatinine 1.96 mg/dl (0.6-1.4) H 06/09/22 16:30 Est Cr Clr Drug Dosing 52.6 ml/min 06/09/22 16:30 Est GFR ( Amer) 39.3 ml/min 06/09/22 16:30 Est GFR (Non-Af Amer) 33.9 ml/min 06/09/22 16:30 BUN/Creatinine Ratio 15.3 (10-20) 06/09/22 16:30 Glucose 143 mg/dl (70-99(Fasting)) H 06/09/22 16:30 POC Glucose 91 mg/dl (70-99) 06/09/22 21:11 Calcium 8.9 mg/dl (8.5-10.1) 06/09/22 16:30 Total Bilirubin 0.5 mg/dl (0.2-1.0) 06/09/22 16:30 AST 15 U/L (13-39) 06/09/22 16:30 ALT 15 U/L (7-52) 06/09/22 16:30 Alkaline Phosphatase 95 U/L (34-104) 06/09/22 16:30 C-Reactive Protein 3.09 mg/dl (0-0.5) H 06/09/22 16:30 Total Protein 6.9 gm/dl (6.0-8.3) 06/09/22 16:30 Albumin 3.5 gm/dl (3.4-5.0) 06/09/22 16:30 Globulin 3.4 gm/dl (2.5-4.0) 06/09/22 16:30 Albumin/Globulin Ratio 1.0 (0.9-2) 06/09/22 16:30 Procalcitonin 0.09 ng/ml (0-0.5) 06/09/22 16:30 Urine Color Yellow 06/09/22 16:37 Urine Appearance Clear (Clear) 06/09/22 16:37 Urine pH 5.5 (4.5-7.5) 06/09/22 16:37 Ur Specific Tar[place]y 1.012 (1.000-1.030) 06/09/22 16:37 Urine Protein 2+ (Negative) H 06/09/22 16:37 Urine Glucose (UA) Negative (Negative) 06/09/22 16:37 Urine Ketones Negative (Negative) 06/09/22 16:37 Urine Blood 2+ (Negative) H 06/09/22 16:37 Urine Nitrite Negative (Negative) 06/09/22 16:37 Urine Bilirubin Negative (Negative) 06/09/22 16:37 Urine Urobilinogen Negative (Negative) 06/09/22 16:37 Ur Leukocyte Esterase Negative (Negative) 06/09/22 16:37 Urine WBC (Auto) 1-5 /hpf (0-5) 06/09/22 16:37 Urine RBC (Auto) 5-10 /hpf (0-4) H 06/09/22 16:37 U Hyaline Cast (Auto) 5-10 /lpf (0-5) H 06/09/22 16:37 U Epithel Cells (Auto) 10-20 /lpf (0-5) H 06/09/22 16:37 Urine Bacteria (Auto) Negative (Negative) 06/09/22 16:37 SARS-CoV-2, RNA, NAAT NEGATIVE (NEGATIVE) 06/09/22 18:24 Impressions Abdomen/Pelvis CT 06/09/22 17:38 CT abd pelvis wo con CLINICAL HISTORY: abscess TECHNIQUE: Helical axial images of the abdomen and pelvis were obtained. Automated dose lowering techniques and/or adjustment according to patient size were utilized for this exam. This exam was performed without intravenous contrast. CT DOSE: 1408.87 mGycm COMPARISON: Comparison is made to CT abdomen pelvis 05/04/2022 FINDINGS: Lower chest: Stable 2 mm nodule in the left lower lobe (series 3 image 31). Liver: Unremarkable. No focal lesions are seen. Gallbladder and biliary tree: No calcified gallstones. Normal caliber wall. No intra- or extrahepatic biliary ductal dilation. Pancreas: Unremarkable, no focal lesions. Spleen: Unremarkable. Adrenals: Stable right myelolipoma. Kidneys and ureters: Perinephric stranding is noted bilaterally. Bladder: Diffuse homogeneous wall thickening is seen. There is may represent chronic outlet obstruction. Reproductive organs: Unremarkable. Bowel: Diverticulosis is noted without diverticulitis. The appendix is normal. Lymph nodes Retroperitoneal: Unremarkable. Pelvic: Unremarkable. Mesenteric: Unremarkable. Peritoneum: Normal. Vessels: Atherosclerotic calcifications are seen. Abdominal wall: In the left scrotal wall, there is a 34 mm fluid density with surrounding soft tissue swelling. Bones: Degenerative changes in the visualized spine. IMPRESSION: 1. There is a left groin abscess/phlegmon with surrounding soft tissue swelling. 2. Diverticulosis without diverticulitis. 3. Additional findings as above. ACT 112: Negative or not required by law. Electronically signed by: Garrett Caceres M.D. 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
[2022-06-09] MEDS ORDERED: TXA 10% Non-IV Routes 100 MG/ML VIAL ONE (22:45)
[2022-06-09] MEDS ORDERED: SILVER NITR/POTASSIUM NITRATE APPLICATOR ONE (22:45)
--- NOTE | 2022-06-09 23:04 | Communication Note ---
Date of Service: June 09, 2022 I was notified by RN that patient's incision and drainage site at hemiscrotum had a dressing that is saturated with blood. I evaluated the patient at the bedside. Review of vitals show the patient's blood pressure is 163/97 with a pulse of 74. Patient was afebrile with a pulse ox of 95% on room air. The patient's incision and drainage site was inspected the dressing was saturated with blood. The dressing and packing were removed. The patient was noted to have some areas of bleeding/oozing along the skin edge. (It is nowhere the mention that the patient takes Eliquis for history of DVT and he did take dose this morning). After the packing was removed the skin edges were cauterized with silver nitrate at bedside. A small amount of oozing remained but overall had improved. Packing was reapplied and dressing was reapplied. We will continue to monitor this closely. Additional measures will be taken if this continues to bleed.
[2022-06-09] MEDS ORDERED: GLUCOSE 40% GEL 15 GM TUBE PO PRN (23:48)
[2022-06-09] MEDS ORDERED: GLUCAGON FOR INJ 1 MG VIAL SQ PRN (23:48)
[2022-06-09] MEDS ORDERED: ONDANSETRON INJ 2 MG/ML 2 ML VIAL IV PRN (23:48)
[2022-06-09] MEDS ORDERED: GLUCOSE 10 TAB/TUBE PO PRN (23:48)
[2022-06-09] MEDS ORDERED: CARBOHYDRATES FOR HYPOGLYCEMIA PO PRN (23:48)
[2022-06-09] MEDS ORDERED: DEXTROSE 50% 50 ML SYRINGE IV PRN (23:48)
[2022-06-10] MEDS: CEFEPIME 2,000 MG in SYRINGE 0 ML IV SCH ×2 (05:26→18:01)
[2022-06-10] MEDS: metroNIDAZOLE 500 MG/100 ML BAG IV SCH ×3 (05:33→21:54)
[2022-06-10] MEDS: allopurinoL 100 MG TAB PO SCH (08:36)
[2022-06-10] MEDS: ROSUVASTATIN CALCIUM 20 MG TAB PO SCH (08:36)
[2022-06-10] MEDS: carvediloL 25 MG TAB PO SCH ×2 (08:36→20:20)
[2022-06-10] MEDS: VALSARTAN/SACUBITRIL 103/97MG TAB PO SCH ×2 (08:37→20:21)
[2022-06-10] MEDS: amLODIPine BESYLATE 5 MG TAB PO SCH (08:37)
[2022-06-10] MEDS: BUMETANIDE 1 MG TAB PO SCH ×2 (08:43→20:21)
[2022-06-10] MEDS: INSULIN ASPART PER UNIT SC SCH ×4 (08:45→21:07)
[2022-06-10] MEDS ORDERED: VANCOMYCIN HCL 2,000 MG in SODIUM CHLORIDE 0.9% 500 ML IV SCH (09:00)
[2022-06-10 09:18] LABS: Basophils # (auto) 0.03 K/uL (0-0.2); Basophils % (auto) 0.3 %; Eosinophils # (auto) 0.11 K/uL (0-0.50); Eosinophils % (auto) 1.3 %; Hematocrit (blood only) 37.7 % (40.1-51.0); Hemoglobin 12.5 g/dl (14.0-18.0); Immature Granulocytes # (auto) 0.06 K/uL (0.00-0.02); Immature Granulocytes % (auto) 0.7 %; Lymphocytes # (auto) 0.77 K/uL (1.2-3.4); Lymphocytes % (auto) 8.9 %; Mean Corpuscular Hemoglobin 26.9 pg (25.0-34.0); Mean Corpuscular Hgb Conc 33.2 g/dL (32.0-36.0); Mean Corpuscular Volume 81.3 fL (80.0-100.0); Mean Platelet Volume 9.3 fL (9.4-12.4); Monocytes # (auto) 0.48 K/uL (0.24-0.82); Monocytes % (auto) 5.5 %; Neutrophils # (auto) 7.21 K/uL (1.4-6.5); Neutrophils % (auto) 83.3 %; Platelet Count 192 K/uL (130-400); RDW Coefficient of Variation 14.7 % (11.5-14.5); RDW Standard Deviation 43.6 fL (36.4-46.3); Red Blood Count 4.64 M/uL (4.63-6.08); White Blood Count 8.66 K/ul (4.8-10.8)
[2022-06-10 09:38] LABS: Albumin Level 3.5 gm/dl (3.4-5.0); BUN Creatinine Ratio 15.3 (10-20); Calcium 8.6 mg/dl (8.5-10.1); Creatinine Clr Calc Pharmacy 53.6 ml/min; Est GFR (African American) 40.8 ml/min; Est GFR (Non-African American) 35.2 ml/min; Phosphorus 3.1 mg/dl (2.5-4.9); Potassium 3.6 mmol/L (3.5-5.1)
--- NOTE | 2022-06-10 10:37 | Urology Progress Note ---
Date of Service June 10, 2022 Assessment & Plan (1) Abscess of scrotum: Plan: Follow-up of scrotal abscess status post bedside I&D on 06/09/2022. Pt afebrile, lab work reviewedcreatinine 1.90, WBC 8.66, hemoglobin 12.5. Blood cultures and wound cultures are pending. Currently on IV cefepime, Flagyl, and vancomycin. Follow cultures. Reports mild scrotal discomfort, currently managing with p.o. Tylenol. Wound care nurse consulted and scheduled to change packing/dressing today. Will need packing exchanged again on Monday per Dr. Robledo. Can transition to appropriate PO antibiotics upon discharge when medically stable. Will need wound care nursing to continue dressing changes upon discharge. will continue to follow. Admission and Anticipated Discharge Date Admission Date: June 09, 2022 Supervising Physician Co-Signing Physician Notes Patient progressing well Temperature currently 37.7 which is T-max and T current Hemodynamically stable and feeling much better today than he was previously Wound care has seen him already and is returning this afternoon for dressing change I have not change his dressing I will plan to look at his wound tomorrow morning Currently on cefepime Final culture still pending After silver nitrate last night he reports that he has not had bleeding issues Subjective Patient seen and examined at bedside this morning. He is awake, alert and sitting up in bedside chair eating breakfast. No acute issues overnight. He has mild scrotal discomfort, tolerable. Voiding spontaneously without difficulty. No dysuria or hematuria. No fever or chills. No nausea or vomiting. Review of Systems Constitutional: as per Subjective / HPI Gastrointestinal: as per Subjective / HPI Genitourinary: + as per Subjective / HPI Physical Exam Constitutional: + obese; no acute distress and not ill appearing Respiratory: normal respiratory effort; no respiratory distress and no labored breathing Cardiovascular: Extremities: no pedal edema Gastrointestinal (Abdomen): Inspection/Auscultation: abdomen normal to inspection; abdomen not distended Psychiatric: Orientation: alert and oriented x 3 Genitourinary: + circumcised Gauze dressing over left scrotum with moderate amount of sanguinous drainage. Left scrotum is tender to palpation, there is some induration noted on the lateral aspect. Wound is packed and sanguinous drainage is noted. No crepitus noted in the surrounding soft tissue. Results & Data ([facility]) Vital Signs (Past 12 Hours) Vital Signs Temp Pulse Pulse Pulse Resp BP Pulse Ox 06/10/22 07:29 37.7 C H 80 18 148/76 H 93 06/10/22 03:04 12 06/10/22 01:21 79 12 95 06/09/22 23:52 06/09/22 23:42 37.1 C 82 20 161/98 H 96 O2 Del Method FiO2 06/10/22 07:29 Room Air 06/10/22 03:04 21 06/10/22 01:21 21 06/09/22 23:52 Room Air 06/09/22 23:42 Room Air PG Care Time/CCT Total # of Minutes Spent Total Time Spent with Patient: Total time spent is greater than 50% in coordination of care (as documented) at patient's floor/unit and/or counseling patient: Coding Level of Care Code 67292 SUB INP/OBS CARE 2/35MIN Diagnoses Abscess of scrotum N49.2
--- NOTE | 2022-06-10 10:41 | Pharmacy Report ---
Pharmacy Vanc AUC Short Note - Date of Service June 10, 2022 - Assessment & Plan Assessment 67 year old M receiving vancomycin, cefepime, and flagyl for perineal abscess. Now s/p I&D - Blood cultures and scrotum culture pending. Patient with PMHx significant with DM, CKD IV, CAD, htn, HF, [place] Day # 2 of antimicrobial therapy. Plan Vancomycin * AUC/AMINA is the preferred PK/PD target for vancomycin * AUC guided dosing is effective and associated with decreased risk of nephrotoxicity compared to traditional trough targets * Patient received loading dose of vancomycin 2750 mg x 1 last evening * Will start maintenance dose of vancomycin 1000 mg iv q 24 hrs - this dosing is estimated to achieve a trough level of ~14 mcg/ml - and predicted to achieve a target AUC/AMINA of 400-600 and may be associated with 9% toxicity * Patient with elevated BMI so concerns with accumulation over time, therefore will monitor levels closely. Will plan to obtain a random level tomorrow AM to assess dosing Pharmacy will continue to follow and will adjust dose/frequency as necessary. Thank you.
[2022-06-10] MEDS: CLOPIDOGREL BISULFATE 75 MG TAB PO SCH (10:58)
[2022-06-10 11:38] LABS: Estimated Average Glucose 206 mg/dl; Hemoglobin A1C 8.8 % (4.5-5.6)
--- NOTE | 2022-06-10 12:42 | Hospitalist Progress Note ---
Date of Service June 10, 2022 Assessment & Plan (1) Abscess of scrotum: Plan: Postoperative day #1 after incision and drainage completed. Cultures are pending. He remains on intravenous vancomycin, Flagyl, cefepime. We will switch Eliquis to Plavix therapy starting tomorrow. (2) Poorly controlled diabetes mellitus: Plan: ADA diet. Sliding scale coverage as needed. 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 Monitor intake and output. Serial labs (4) Severe obstructive sleep apnea: Plan: Currently stable (5) Vitamin D deficiency: Plan: Continue vitamin D replacement (6) Diabetes: Plan: ADA diet. Sliding scale coverage as needed (7) Hypertension: Plan: Stable on current medical management (8) Myocardial infarct: Plan: History of coronary artery disease and myocardial infarction. Stable on current medical management (9) Hypercholesterolemia: Plan: Stable. Continue statin therapy (10) Stented coronary artery: Plan: Stable. Continue current medical management Plan Anticipate eventual discharge to home on oral antibiotic. Admission and Anticipated Discharge Date Admission Date: June 09, 2022 Subjective Alert and oriented. No complaints. Urology entry noted. He has been on Eliquis for over a year for a left leg DVT that was the only occurrence. He states his hypercoagulation work-up was negative. He wishes to switch back to Plavix which will be done tomorrow. Potassium improved to 3.6 and oral potassium added today. Postoperative day #1 after scrotal abscess I&D. He remains on intravenous vancomycin Flagyl and cefepime. Cultures remain pending. Creatinine stable at 1.9. We will follow. Review of Systems Review of Systems: Constitutional-no fever or chills ENT-no blurred vision, no double vision, no epistaxis, no sore throat Respiratory-no cough, no wheezing, no shortness of breath Cardiac-no palpitations, no chest pain, no syncope GI-no nausea, vomiting, diarrhea, melena, hematochezia -some post incision and drainage scrotal discomfort as expected Musculoskeletal-no joint pain, no muscle tenderness Skin-no bruising, no rashes, no pruritus Neuro-no isolated weakness, no paresthesia, no weakness Psych-no depression, no anxiety Physical Exam Physical Exam: General-alert and oriented x3, no fevers, no chills HEENT-head atraumatic and normocephalic, pupils equal and reactive to light, extraocular muscles intact Neck-no lymphadenopathy or thyromegaly, trachea midline Chest-clear to auscultation percussion. No rales wheezing or rhonchi Cardiac-regular rate and rhythm, normal S1 and S2 Abdomen-normal bowel sounds, nontender, no hepatosplenomegaly GUscrotal incision and drainage site is unremarkable. Swelling and erythema are resolving Extremities-no cyanosis, clubbing, or edema Neuro-cranial nerves II through XII intact, motor and sensory function within normal limits, strength symmetrical , no focal deficits Psych-normal affect, normal mood Results & Data Results & Data ([facility]) Vital Signs (Past 12 Hours) Vital Signs Temp Pulse Pulse Resp BP Pulse Ox O2 Del Method 06/10/22 11:25 37.7 C H 77 18 162/80 H 93 Room Air 06/10/22 07:29 37.7 C H 80 18 148/76 H 93 Room Air 06/10/22 03:04 12 06/10/22 01:21 79 12 95 FiO2 06/10/22 11:25 06/10/22 07:29 06/10/22 03:04 21 06/10/22 01:21 21 Laboratory Results 06/10/22 08:11 06/10/22 08:11 PG Care Time/CCT Total # of Minutes Spent Total Time Spent with Patient: Total time spent is greater than 50% in coordination of care (as documented) at patient's floor/unit and/or counseling patient: Coding Level of Care Code 22315 SUB INP/OBS CARE 3/50MIN Diagnoses Abscess of scrotum N49.2 Poorly controlled diabetes mellitus E11.65 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
[2022-06-10] MEDS ORDERED: oxyCODONE HCL IR 5 MG TAB (IMMEDIATE RELEASE) PO STA (14:39)
[2022-06-10] MEDS ORDERED: oxyCODONE HCL IR 5 MG TAB (IMMEDIATE RELEASE) ONE (14:43)
[2022-06-10] MEDS ORDERED: VANCOMYCIN HCL 1,000 MG in SODIUM CHLORIDE 0.9% 250 ML IV SCH (20:00)
[2022-06-10] MEDS: ACETAMINOPHEN 325 MG TAB PO PRN (20:20)
[2022-06-10] MEDS: FAMOTIDINE 20 MG TAB PO PRN (20:22)
[2022-06-10] MEDS: LANTUS PER UNIT CHARGE SQ SCH (21:07)
[2022-06-11] MEDS: CEFEPIME 2,000 MG in SYRINGE 0 ML IV SCH ×2 (06:17→17:56)
[2022-06-11] MEDS: metroNIDAZOLE 500 MG/100 ML BAG IV SCH ×3 (06:22→22:00)
[2022-06-11] MEDS: ACETAMINOPHEN 325 MG TAB PO PRN ×2 (06:24→19:57)
[2022-06-11 07:22] LABS: Basophils # (auto) 0.04 K/uL (0-0.2); Basophils % (auto) 0.6 %; Eosinophils # (auto) 0.31 K/uL (0-0.50); Eosinophils % (auto) 4.9 %; Hematocrit (blood only) 34.2 % (40.1-51.0); Hemoglobin 11.1 g/dl (14.0-18.0); Immature Granulocytes # (auto) 0.04 K/uL (0.00-0.02); Immature Granulocytes % (auto) 0.6 %; Lymphocytes # (auto) 1.19 K/uL (1.2-3.4); Lymphocytes % (auto) 18.7 %; Mean Corpuscular Hemoglobin 26.6 pg (25.0-34.0); Mean Corpuscular Hgb Conc 32.5 g/dL (32.0-36.0); Monocytes # (auto) 0.59 K/uL (0.24-0.82); Monocytes % (auto) 9.2 %; Neutrophils # (auto) 4.21 K/uL (1.4-6.5); Platelet Count 170 K/uL (130-400); RDW Coefficient of Variation 14.6 % (11.5-14.5); RDW Standard Deviation 43.6 fL (36.4-46.3); Red Blood Count 4.17 M/uL (4.63-6.08); White Blood Count 6.38 K/ul (4.8-10.8)
[2022-06-11 08:05] LABS: Calcium 8.3 mg/dl (8.5-10.1); Magnesium 2.1 mg/dl (1.7-2.4); Potassium 3.2 mmol/L (3.5-5.1)
[2022-06-11 08:11] LABS: BUN Creatinine Ratio 15.7 (10-20); Creatinine Clr Calc Pharmacy 40.9 ml/min; Est GFR (African American) 29.4 ml/min; Est GFR (Non-African American) 25.4 ml/min
[2022-06-11] MEDS: ROSUVASTATIN CALCIUM 20 MG TAB PO SCH (08:46)
[2022-06-11] MEDS: CLOPIDOGREL BISULFATE 75 MG TAB PO SCH (08:46)
[2022-06-11] MEDS: carvediloL 25 MG TAB PO SCH ×2 (08:46→19:54)
[2022-06-11] MEDS: amLODIPine BESYLATE 5 MG TAB PO SCH (08:46)
[2022-06-11] MEDS: BUMETANIDE 1 MG TAB PO SCH ×2 (08:47→19:53)
[2022-06-11] MEDS: allopurinoL 100 MG TAB PO SCH (08:47)
[2022-06-11] MEDS: VALSARTAN/SACUBITRIL 103/97MG TAB PO SCH ×2 (08:47→19:54)
[2022-06-11] MEDS ORDERED: POTASSIUM CHLORIDE 10 MEQ TABCR PO SCH (09:00)
[2022-06-11] MEDS: INSULIN ASPART PER UNIT SC SCH ×4 (09:09→21:57)
--- NOTE | 2022-06-11 09:47 | Pharmacy Report ---
Pharmacy PK ABX Note - Date of Service June 11, 2022 - Assessment and Plan Assessment * 67 year old M receiving cefepime, metronidazole, and vancomycin for treatment of perineal abscess s/p I&D. * Pertinent microbiologic data includes: scrotal and blood cultures x2 with no growth to date * MEAGHAN noted - will stop scheduled vancomycin and dose via level Plan Vancomycin * Random level this AM of 16.3 mcg/mL this AM - OK to redose vancomycin but will do so later today as this level is likely to stay therapeutic given MEAGHAN * One-time dose of 500 mg later today * Random level tomorrow AM Pharmacy will continue to follow and will adjust dose/frequency as necessary. Thank you. Pharmacy has transitioned to AUC monitoring for vancomycin. AUC/AMINA is the preferred PK/PD target and is associated with decreased risk of nephrotoxicity compared to traditional trough targets.
--- NOTE | 2022-06-11 09:58 | Urology Progress Note ---
Date of Service June 11, 2022 Assessment & Plan (1) Perineal abscess: (2) Abscess of scrotum: Plan Status post I&D of perineal and scrotal abscess Progressing appropriately Wound care is managing his dressing changes Cultures have not yet shown any identifiable pathogen Likely discharge home in the next 24 to 48 hoursoutpatient follow-up scheduled already in urology on Monday Admission and Anticipated Discharge Date Admission Date: June 09, 2022 Subjective Feeling well today Aside from some persistent testicular pain he feels that he is improving No fevers Labs stable Wound care changes dressing yesterday and will be returning today to change againphotos are documented in the record Physical Exam Constitutional: well developed and well nourished Respiratory: no respiratory distress Cardiovascular: Extremities: no pedal edema Gastrointestinal (Abdomen): Inspection/Auscultation: abdomen normal to inspection Results & Data ([facility]) Vital Signs (Past 12 Hours) Vital Signs Temp Pulse Resp BP Pulse Ox O2 Del Method 06/11/22 08:00 36.4 C L 69 18 117/63 95 Room Air PG Care Time/CCT Total # of Minutes Spent Total Time Spent with Patient: Total time spent is greater than 50% in coordination of care (as documented) at patient's floor/unit and/or counseling patient: Coding Level of Care Code 98450 SUB INP/OBS CARE 2/35MIN Diagnoses Perineal abscess L02.215 Abscess of scrotum N49.2
[2022-06-11] MEDS: oxyCODONE HCL IR 5 MG TAB (IMMEDIATE RELEASE) PO PRN (13:21)
--- NOTE | 2022-06-11 15:07 | Hospitalist Progress Note ---
Date of Service June 11, 2022 Assessment & Plan (1) Abscess of scrotum: Plan: Postoperative day #2 after incision and drainage completed. Culture reveals gram-positive cocci and gram-negative bacteria. He remains on vancomycin, cefepime and Flagyl. Will tailor antibiotics once final pathogens are identified. (2) Poorly controlled diabetes mellitus: Plan: ADA diet. Sliding scale coverage as needed. (3) Stage 4 chronic kidney disease due to diabetes mellitus: Plan: Creatinine bumped noted to 2.4. Monitor intake and output. Serial labs (4) Severe obstructive sleep apnea: Plan: Currently stable (5) Vitamin D deficiency: Plan: Continue vitamin D replacement (6) Diabetes: Plan: ADA diet. Sliding scale coverage as needed (7) Hypertension: Plan: Stable on current medical management (8) Myocardial infarct: Plan: History of coronary artery disease and myocardial infarction. Stable on current medical management (9) Hypercholesterolemia: Plan: Stable. Continue statin therapy (10) Stented coronary artery: Plan: Stable. Continue current medical management (11) Hypokalemia: Plan: Up titration of oral potassium. Serial labs Plan Anticipate eventual discharge to home on oral antibiotic. Admission and Anticipated Discharge Date Admission Date: June 09, 2022 Subjective Alert and oriented. No distress. He has developed some constipation and MiraLAX along with Colace have been ordered. Potassium is low again at 3.2. Oral potassium dosage increased. He is now on Plavix which replaces his usual Eliquis. Postoperative day 2 after incision and drainage of the scrotal abscess Review of Systems Review of Systems: Constitutional-no fever or chills ENT-no blurred vision, no double vision, no epistaxis, no sore throat Respiratory-no cough, no wheezing, no shortness of breath Cardiac-no palpitations, no chest pain, no syncope GI-no nausea, vomiting, diarrhea, melena, hematochezia -some post incision and drainage scrotal discomfort as expected Musculoskeletal-no joint pain, no muscle tenderness Skin-no bruising, no rashes, no pruritus Neuro-no isolated weakness, no paresthesia, no weakness Psych-no depression, no anxiety Physical Exam Physical Exam: General-alert and oriented x3, no fevers, no chills HEENT-head atraumatic and normocephalic, pupils equal and reactive to light, extraocular muscles intact Neck-no lymphadenopathy or thyromegaly, trachea midline Chest-clear to auscultation percussion. No rales wheezing or rhonchi Cardiac-regular rate and rhythm, normal S1 and S2 Abdomen-normal bowel sounds, nontender, no hepatosplenomegaly GUscrotal incision and drainage site is unremarkable. Swelling and erythema are resolving Extremities-no cyanosis, clubbing, or edema Neuro-cranial nerves II through XII intact, motor and sensory function within normal limits, strength symmetrical , no focal deficits Psych-normal affect, normal mood Results & Data Results & Data ([facility]) Vital Signs (Past 12 Hours) Vital Signs Temp Pulse Pulse Resp BP Pulse Ox O2 Del Method 06/11/22 14:46 36.7 C 69 16 116/74 94 Room Air 06/11/22 12:16 36.6 C 67 18 107/56 L 95 Room Air 06/11/22 08:00 36.4 C L 69 18 117/63 95 Room Air Laboratory Results 06/11/22 06:36 06/11/22 06:36 PG Care Time/CCT Total # of Minutes Spent Total Time Spent with Patient: Total time spent is greater than 50% in coordination of care (as documented) at patient's floor/unit and/or counseling patient: Coding Level of Care Code 44792 SUB INP/OBS CARE 3/50MIN Diagnoses Abscess of scrotum N49.2 Poorly controlled diabetes mellitus E11.65 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 Hypokalemia E87.6
[2022-06-11] MEDS: POLYETHYLENE (MIRALAX) 17 GM PACK PO SCH (16:11)
[2022-06-11] MEDS ORDERED: VANCOMYCIN HCL 500 MG in DEXTROSE 5% 100 ML IV ONE (18:00)
[2022-06-11] MEDS: POTASSIUM CHLORIDE 10 MEQ TABCR PO SCH (19:53)
[2022-06-11] MEDS: DOCUSATE SODIUM 100 MG CAP PO SCH (19:53)
[2022-06-11] MEDS: LANTUS PER UNIT CHARGE SQ SCH (21:57)
[2022-06-12] MEDS: CEFEPIME 2,000 MG in SYRINGE 0 ML IV SCH ×2 (05:27→18:06)
[2022-06-12] MEDS: metroNIDAZOLE 500 MG/100 ML BAG IV SCH ×3 (05:35→21:07)
[2022-06-12 06:02] LABS: Basophils # (auto) 0.04 K/uL (0-0.2); Basophils % (auto) 0.6 %; Eosinophils # (auto) 0.34 K/uL (0-0.50); Eosinophils % (auto) 5.3 %; Hematocrit (blood only) 30.9 % (40.1-51.0); Hemoglobin 10.4 g/dl (14.0-18.0); Immature Granulocytes # (auto) 0.05 K/uL (0.00-0.02); Immature Granulocytes % (auto) 0.8 %; Lymphocytes # (auto) 1.25 K/uL (1.2-3.4); Lymphocytes % (auto) 19.4 %; Mean Corpuscular Hemoglobin 27.4 pg (25.0-34.0); Mean Corpuscular Hgb Conc 33.7 g/dL (32.0-36.0); Mean Corpuscular Volume 81.5 fL (80.0-100.0); Mean Platelet Volume 9.3 fL (9.4-12.4); Monocytes % (auto) 9.3 %; Neutrophils # (auto) 4.16 K/uL (1.4-6.5); Neutrophils % (auto) 64.6 %; Platelet Count 171 K/uL (130-400); RDW Coefficient of Variation 14.6 % (11.5-14.5); RDW Standard Deviation 43.8 fL (36.4-46.3); Red Blood Count 3.79 M/uL (4.63-6.08); White Blood Count 6.44 K/ul (4.8-10.8)
[2022-06-12 06:19] LABS: Calcium 8.4 mg/dl (8.5-10.1); Creatinine Clr Calc Pharmacy 40.3 ml/min; Est GFR (African American) 28.8 ml/min; Est GFR (Non-African American) 24.9 ml/min; Magnesium 2.1 mg/dl (1.7-2.4); Potassium 3.3 mmol/L (3.5-5.1)
--- NOTE | 2022-06-12 08:52 | Urology Progress Note ---
Date of Service June 12, 2022 Assessment & Plan (1) Perineal abscess: (2) Abscess of scrotum: Plan Improving Plan for dressing change today Likely stay overnight and dressing change tomorrow and then discharge home as he will be seeing us in the office on Monday Cultures not showing any definitive bacteria still likely coverage with something along the lines of Bactrim would be reasonable Admission and Anticipated Discharge Date Admission Date: June 09, 2022 Subjective No major changes Feels that his testicular pain has improved overnight but is not entirely resolved Tolerated his dressing change yesterday without incident Afebrile, hemodynamically stable Creatinine essentially at baseline but elevated Hemoglobin and hematocrit did drop overnight, he has had no active bleeding so I wonder if this is more artifactual than active bleeding Physical Exam Constitutional: well developed and well nourished Respiratory: no respiratory distress Cardiovascular: Extremities: no pedal edema Gastrointestinal (Abdomen): Inspection/Auscultation: abdomen normal to inspection Results & Data ([facility]) Vital Signs (Past 12 Hours) Vital Signs Temp Pulse Pulse Resp BP Pulse Ox O2 Del Method 06/12/22 08:07 36.8 C 63 18 100/55 L 95 Room Air 06/11/22 21:06 36.8 C 70 18 132/73 94 Room Air PG Care Time/CCT Total # of Minutes Spent Total Time Spent with Patient: Total time spent is greater than 50% in coordination of care (as documented) at patient's floor/unit and/or counseling patient: Coding Level of Care Code 98499 SUB INP/OBS CARE 2/35MIN Diagnoses Perineal abscess L02.215 Abscess of scrotum N49.2
[2022-06-12] MEDS: BUMETANIDE 1 MG TAB PO SCH ×2 (09:01→20:54)
[2022-06-12] MEDS: VALSARTAN/SACUBITRIL 103/97MG TAB PO SCH ×2 (09:01→20:54)
[2022-06-12] MEDS: POLYETHYLENE (MIRALAX) 17 GM PACK PO SCH (09:01)
[2022-06-12] MEDS: CLOPIDOGREL BISULFATE 75 MG TAB PO SCH (09:02)
[2022-06-12] MEDS: POTASSIUM CHLORIDE 10 MEQ TABCR PO SCH (09:02)
[2022-06-12] MEDS: carvediloL 25 MG TAB PO SCH ×2 (09:03→20:56)
[2022-06-12] MEDS: DOCUSATE SODIUM 100 MG CAP PO SCH ×2 (09:03→20:55)
[2022-06-12] MEDS: amLODIPine BESYLATE 5 MG TAB PO SCH (09:03)
[2022-06-12] MEDS: allopurinoL 100 MG TAB PO SCH (09:03)
[2022-06-12] MEDS: ROSUVASTATIN CALCIUM 20 MG TAB PO SCH (09:03)
[2022-06-12] MEDS: INSULIN ASPART PER UNIT SC SCH ×4 (09:13→21:05)
--- NOTE | 2022-06-12 11:18 | Pharmacy Report ---
Pharmacy PK ABX Note - Date of Service June 12, 2022 - Assessment and Plan Assessment * 67 year old M receiving cefepime, metronidazole, and vancomycin for treatment of perineal abscess s/p I&D. * Pertinent microbiologic data includes: scrotal and blood cultures x2 with no growth to date * SCr increase yesterday noted, which is stable today. OK to cautiously resume scheduled vancomycin Plan Vancomycin * Random level this AM of 13.4 mcg/mL this AM - OK to resume scheduled vancomycin at previous dose of 1000 mg IV daily * Random level tomorrow AM Pharmacy will continue to follow and will adjust dose/frequency as necessary. Thank you. Pharmacy has transitioned to AUC monitoring for vancomycin. AUC/AMINA is the preferred PK/PD target and is associated with decreased risk of nephrotoxicity compared to traditional trough targets.
[2022-06-12] MEDS: VANCOMYCIN HCL 1,000 MG in SODIUM CHLORIDE 0.9% 250 ML IV SCH (12:04)
--- NOTE | 2022-06-12 13:06 | Hospitalist Progress Note ---
Date of Service June 12, 2022 Assessment & Plan (1) Abscess of scrotum: Plan: Postoperative day #3 after incision and drainage completed. Culture reveals gram-positive cocci and gram-negative bacteria. He remains on vancomycin, cefepime and Flagyl. Probable discharge to home tomorrow on oral Bactrim. (2) Poorly controlled diabetes mellitus: Plan: ADA diet. Sliding scale coverage as needed. (3) Stage 4 chronic kidney disease due to diabetes mellitus: Plan: Creatinine bump noted to 2.5. Monitor intake and output. Serial labs (4) Severe obstructive sleep apnea: Plan: Currently stable (5) Vitamin D deficiency: Plan: Continue vitamin D replacement (6) Diabetes: Plan: ADA diet. Sliding scale coverage as needed (7) Hypertension: Plan: Stable on current medical management (8) Myocardial infarct: Plan: History of coronary artery disease and myocardial infarction. Stable on current medical management (9) Hypercholesterolemia: Plan: Stable. Continue statin therapy (10) Stented coronary artery: Plan: Stable. Continue current medical management (11) Hypokalemia: Plan: Up titration of oral potassium again today, June 12. Serial labs Plan Probable discharge to home tomorrow, June 13, on oral Bactrim. Admission and Anticipated Discharge Date Admission Date: June 12, 2022 Subjective Alert and oriented. No complaints. Urology entry noted. Hopeful discharge to home tomorrow, June 13. Potassium remains low and supplementation uptitrated today, June 12 Review of Systems Review of Systems: Constitutional-no fever or chills ENT-no blurred vision, no double vision, no epistaxis, no sore throat Respiratory-no cough, no wheezing, no shortness of breath Cardiac-no palpitations, no chest pain, no syncope GI-no nausea, vomiting, diarrhea, melena, hematochezia -some post incision and drainage scrotal discomfort as expected Musculoskeletal-no joint pain, no muscle tenderness Skin-no bruising, no rashes, no pruritus Neuro-no isolated weakness, no paresthesia, no weakness Psych-no depression, no anxiety Physical Exam Physical Exam: General-alert and oriented x3, no fevers, no chills HEENT-head atraumatic and normocephalic, pupils equal and reactive to light, extraocular muscles intact Neck-no lymphadenopathy or thyromegaly, trachea midline Chest-clear to auscultation percussion. No rales wheezing or rhonchi Cardiac-regular rate and rhythm, normal S1 and S2 Abdomen-normal bowel sounds, nontender, no hepatosplenomegaly GUscrotal incision and drainage site is unremarkable. Swelling and erythema are resolving Extremities-no cyanosis, clubbing, or edema Neuro-cranial nerves II through XII intact, motor and sensory function within normal limits, strength symmetrical , no focal deficits Psych-normal affect, normal mood Results & Data Results & Data ([facility]) Vital Signs (Past 12 Hours) Vital Signs Temp Pulse Resp BP Pulse Ox O2 Del Method 06/12/22 12:05 36.9 C 67 18 116/62 96 Room Air 06/12/22 08:07 36.8 C 63 18 100/55 L 95 Room Air Laboratory Results 06/12/22 05:42 06/12/22 05:42 PG Care Time/CCT Total # of Minutes Spent Total Time Spent with Patient: Total time spent is greater than 50% in coordination of care (as documented) at patient's floor/unit and/or counseling patient: Coding Level of Care Code 98755 SUB INP/OBS CARE 3/50MIN Diagnoses Abscess of scrotum N49.2 Poorly controlled diabetes mellitus E11.65 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 Hypokalemia E87.6
[2022-06-12] MEDS: oxyCODONE HCL IR 5 MG TAB (IMMEDIATE RELEASE) PO PRN (15:10)
[2022-06-12] MEDS: LANTUS PER UNIT CHARGE SQ SCH (21:06)
[2022-06-12] MEDS: FAMOTIDINE 20 MG TAB PO PRN (21:07)
[2022-06-12] MEDS: POTASSIUM CHLORIDE CRTAB 20 MEQ TABCR PO SCH (21:08)
[2022-06-13] MEDS: metroNIDAZOLE 500 MG/100 ML BAG IV SCH ×2 (05:45→14:08)
[2022-06-13] MEDS: CEFEPIME 2,000 MG in SYRINGE 0 ML IV SCH (05:45)
[2022-06-13 06:43] LABS: BUN Creatinine Ratio 18.5 (10-20); Calcium 8.5 mg/dl (8.5-10.1); Creatinine Clr Calc Pharmacy 40.1 ml/min; Est GFR (African American) 28.7 ml/min; Est GFR (Non-African American) 24.8 ml/min; Potassium 3.4 mmol/L (3.5-5.1)
--- NOTE | 2022-06-13 07:29 | Pharmacy Report ---
Pharmacy PK ABX Note - Date of Service June 13, 2022 - Assessment and Plan Assessment * 67 year old M receiving cefepime, metronidazole, and vancomycin for treatment of perineal abscess s/p I&D. * Pertinent microbiologic data includes: scrotal and blood cultures x2 with no growth to date * SCr increase noted 06/11, which has been stably elevated x2 days Vancomycin * Random level this AM of 15.2 mcg/mL this AM - this is associated with a therapeutic AUC. * Continue scheduled vancomycin at current dose Plan * Continue vancomycin 1000 mg IV daily * Consider repeating random level in ~72 hours, or sooner if renal function changes again. Did not order at this time as duration is currently only scheduled through 06/16 Pharmacy will continue to follow and will adjust dose/frequency as necessary. Thank you. Pharmacy has transitioned to AUC monitoring for vancomycin. AUC/AMINA is the preferred PK/PD target and is associated with decreased risk of nephrotoxicity compared to traditional trough targets.
[2022-06-13] MEDS: VALSARTAN/SACUBITRIL 103/97MG TAB PO SCH (08:17)
[2022-06-13] MEDS: DOCUSATE SODIUM 100 MG CAP PO SCH (08:17)
[2022-06-13] MEDS: BUMETANIDE 1 MG TAB PO SCH (08:17)
[2022-06-13] MEDS: carvediloL 25 MG TAB PO SCH (08:17)
[2022-06-13] MEDS: CLOPIDOGREL BISULFATE 75 MG TAB PO SCH (08:18)
[2022-06-13] MEDS: ROSUVASTATIN CALCIUM 20 MG TAB PO SCH (08:18)
[2022-06-13] MEDS: allopurinoL 100 MG TAB PO SCH (08:18)
[2022-06-13] MEDS: POTASSIUM CHLORIDE CRTAB 20 MEQ TABCR PO SCH (08:19)
[2022-06-13] MEDS: POLYETHYLENE (MIRALAX) 17 GM PACK PO SCH (08:19)
[2022-06-13] MEDS: INSULIN ASPART PER UNIT SC SCH ×2 (08:45→12:50)
[2022-06-13] MEDS: amLODIPine BESYLATE 5 MG TAB PO SCH (09:27)
[2022-06-13 09:34] LABS: Basophils # (auto) 0.05 K/uL (0-0.2); Basophils % (auto) 0.9 %; Eosinophils # (auto) 0.33 K/uL (0-0.50); Eosinophils % (auto) 5.7 %; Hemoglobin 10.9 g/dl (14.0-18.0); Immature Granulocytes # (auto) 0.05 K/uL (0.00-0.02); Immature Granulocytes % (auto) 0.9 %; Lymphocytes # (auto) 1.01 K/uL (1.2-3.4); Lymphocytes % (auto) 17.4 %; Mean Corpuscular Volume 81.7 fL (80.0-100.0); Mean Platelet Volume 8.9 fL (9.4-12.4); Monocytes # (auto) 0.43 K/uL (0.24-0.82); Monocytes % (auto) 7.4 %; Neutrophils # (auto) 3.92 K/uL (1.4-6.5); Neutrophils % (auto) 67.7 %; Platelet Count 180 K/uL (130-400); RDW Coefficient of Variation 14.7 % (11.5-14.5); RDW Standard Deviation 44.3 fL (36.4-46.3); Red Blood Count 4.04 M/uL (4.63-6.08); White Blood Count 5.79 K/ul (4.8-10.8)
[2022-06-13] MEDS: oxyCODONE HCL IR 5 MG TAB (IMMEDIATE RELEASE) PO PRN (11:25)
[2022-06-13] MEDS: VANCOMYCIN HCL 1,000 MG in SODIUM CHLORIDE 0.9% 250 ML IV SCH (12:31)
--- NOTE | 2022-06-13 13:04 | Urology Progress Note ---
Date of Service June 13, 2022 Assessment & Plan (1) Abscess of scrotum: Plan Scrotal abscess status post bedside I&D on 06/09/2022. Pt afebrile, lab work reviewedWBC 5.79, hemoglobin 10.9, creatinine 2.54. Blood cultures and wound cultures preliminary no growth. Currently on IV cefepime, Flagyl, and vancomycin. Follow cultures. Can transition to appropriate PO antibiotics upon discharge. Cultures not showing any definitive bacteria still likely coverage with something along the lines of Bactrim would be reasonable. Will need to continue with every other day dressing changes upon discharge. Patient has a follow-up with wound care tomorrow and home health services have been arranged. Plan to follow-up with urology outpatient as scheduled. Admission and Anticipated Discharge Date Admission Date: June 12, 2022 Subjective Patient examined at bedside this AM. Awake, resting in bed on arrival. No acute distress. Dressing changed by nursing this morning without issue. Still with some scrotal/testicular pain, but tolerable. Voiding without issue. No fevers. Review of Systems Constitutional: as per Subjective / HPI Genitourinary: + as per Subjective / HPI Physical Exam Constitutional: no acute distress Respiratory: no respiratory distress and no labored breathing Psychiatric: Orientation: alert and oriented x 3 Genitourinary: Scrotal wound packing intact.Mild erythema and edema noted around site. Results & Data ([facility]) Vital Signs (Past 12 Hours) Vital Signs Temp Pulse Resp BP Pulse Ox O2 Del Method 06/13/22 07:30 Room Air 06/13/22 07:04 36.5 C 70 16 126/71 95 Room Air PG Care Time/CCT Total # of Minutes Spent Total Time Spent with Patient: Total time spent is greater than 50% in coordination of care (as documented) at patient's floor/unit and/or counseling patient: Coding Level of Care Code 23825 SUB INP/OBS CARE 2/35MIN Diagnoses Abscess of scrotum N49.2
--- NOTE | 2022-06-13 13:52 | Discharge Summary ---
Date of Service June 13, 2022 Admission HPI Per Admitting Provider The patient is a 67-year-old male with a past medical history including poorly controlled diabetes mellitus, CKD stage IV, severe OSMAN, spermatocele, thrombophlebitis of left leg, pulmonary nodule, vitamin D deficiency, gout, myocardial infarction, hypertension, CAD, apical mural thrombus, history of coronary artery stent placement, a sending aortic aneurysm chronic HFrEF, ischemic cardiomyopathy and tinea corporis. The patient has been followed in the outpatient setting as noted, and presented to the emergency department with ultrasound that was performed was consistent with a possible worsening abscess. The patient underwent incision and drainage by urology in the ED, and was referred to the hospitalist service for admission for IV antibiotics. Principal Diagnosis Scrotal abscess s/p I&D Discharge Exam GENERAL: 67 yo Well-developed, well-nourished WM. NAD. LUNGS: Clear to auscultation bilaterally. No W/R/R. CARDIOVASCULAR: Regular rate and rhythm. ABDOMEN: Soft, non-tender and non-distended. BS normoactive x 4 quad. EXTREMITIES: No edema. Non-tender. Peripheral pulses +2/4. NEUROLOGIC: A&O x3. Nonfocal PSYCHIATRIC: Cooperative. Appropriate mood and affect. SKIN: Warm, dry, intact. Scrotal swelling observed, size of softball, erythema noted with purulent drainage and tail of packing noted on proximal left side of scrotum. Discharge Data Allergies Allergy/AdvReac Type Severity Reaction Status Date / Time latex Allergy Mild RASH Verified 06/09/22 12:05 penicillin V Allergy Mild NOT SURE Verified 06/09/22 12:05 adhesive tape Allergy Unknown Verified 06/09/22 12:05 saxagliptin [From Onglyza] Allergy Unknown Verified 06/09/22 12:05 shellfish derived Allergy Unknown ANAPHYLAXIS Verified 06/09/22 12:05 Consultations 06/09/22 19:23 Consult Urology Stat 06/09/22 19:36 ED Decision to Admit Stat Ordered Studies Abdomen/Pelvis CT 06/09/22 17:38 CT abd pelvis wo con CLINICAL HISTORY: abscess TECHNIQUE: Helical axial images of the abdomen and pelvis were obtained. Automated dose lowering techniques and/or adjustment according to patient size were utilized for this exam. This exam was performed without intravenous contrast. CT DOSE: 1408.87 mGycm COMPARISON: Comparison is made to CT abdomen pelvis 05/04/2022 FINDINGS: Lower chest: Stable 2 mm nodule in the left lower lobe (series 3 image 31). Liver: Unremarkable. No focal lesions are seen. Gallbladder and biliary tree: No calcified gallstones. Normal caliber wall. No intra- or extrahepatic biliary ductal dilation. Pancreas: Unremarkable, no focal lesions. Spleen: Unremarkable. Adrenals: Stable right myelolipoma. Kidneys and ureters: Perinephric stranding is noted bilaterally. Bladder: Diffuse homogeneous wall thickening is seen. There is may represent chronic outlet obstruction. Reproductive organs: Unremarkable. Bowel: Diverticulosis is noted without diverticulitis. The appendix is normal. Lymph nodes Retroperitoneal: Unremarkable. Pelvic: Unremarkable. Mesenteric: Unremarkable. Peritoneum: Normal. Vessels: Atherosclerotic calcifications are seen. Abdominal wall: In the left scrotal wall, there is a 34 mm fluid density with surrounding soft tissue swelling. Bones: Degenerative changes in the visualized spine. IMPRESSION: 1. There is a left groin abscess/phlegmon with surrounding soft tissue swelling. 2. Diverticulosis without diverticulitis. 3. Additional findings as above. ACT 112: Negative or not required by law. Electronically signed by: Garrett Caceres M.D. 06/09/2022 6:36 PM Hospital Course (1) Abscess of scrotum: Postoperative day #4 after incision and drainage completed by Dr. Robledo Gram stain reveals gram-positive cocci and gram-negative bacteria, culture is pending. He remains on empiric vancomycin, cefepime and Flagyl. Pt verbalizes no h/o MRSA Will dc home on the following regimen: Cefdinir 300mg BID, Doxycyline 100mg BID, and Flagyl 500mg TID for total of 10 days OxyIR 5mg q6h prn severe pain (10 tabs) rx'd Keep scrotum elevated as able, avoid prolonged sitting/standing Use ice packs prn (2) Poorly controlled diabetes mellitus: ADA diet. Sliding scale coverage as needed. (3) Stage 4 chronic kidney disease due to diabetes mellitus: Creatinine stable and within baseline (2.2 to 2.7) over the past year (4) Severe obstructive sleep apnea: Currently stable (5) Vitamin D deficiency: Continue vitamin D replacement (6) Diabetes: ADA diet. Sliding scale coverage as needed (7) Hypertension: Stable on current medical management (8) Myocardial infarct: History of coronary artery disease and myocardial infarction. Stable on current medical management (9) Hypercholesterolemia: Stable. Continue statin therapy (10) Stented coronary artery: Stable. Continue current medical management (11) Hypokalemia: Increased oral potassium to 20meq BID (as opposed to 10meq BID that he was on at home) Increase dietary potassium, given additional 20meq po x1 prior to dc Plan Patient is medically and hemodynamically stable for discharge home on the antibiotic regimen as outlined above. He will follow up with urology as an outpatient. Antibiotic regimen can be tailored based on culture data once finalized. Plan d/w Dr. Perez who has also seen and evaluated this patient and agrees with aforementioned. Total Time Total Time Spent Total Time Spent (In Minutes): >30 minutes Discharge Plan Discharge Items Patient Disposition: Home - Home Health Services Reason For Visit: SCROTAL ABCESS Discharge Diagnosis: scrotal abscess Activity: As commented below Activity Comment: As tolerated, avoid prolonged sitting/standing Non-emergency contact: Primary Care Provider and Urologist Call non-emergency contact if: you have any medication questions and your symptoms worsen Follow-up/Referrals: Chava Stark MD [Primary Care Provider] - 06/20/22 1:30 pm (APPT WITH PAVITH[facility] CASTANO) Lavonne Hatch DO, FACEP [Physician] - 06/14/22 9:10 am (Please arrive 15 minutes prior to appointment time.) Diet: Carb Consistent or DM2 Addtl Attending Provider Instructions: You were hospitalized due to an abscess in your scrotum which was causing swelling and redness. This was drained by urology and sent for analysis. The final culture report is still pending at this time. You were placed on IV antibiotics which will be transitioned to oral antibiotics. You will need to complete a minimum of 10 days. For now, you are going to be sent home with 3 antibiotics to adequately cover all possible bacteria until the results of your culture has been finalized. At that point, your antibiotic regimen may be adjusted. Upon discharge, you will be prescribed the following antibiotics: Cefdinir 300mg, one tablet to be taken twice a day, Flagyl 500mg, one table to be taken t hree times a day, and Doxycycline 100mg, one tablet to be taken twice a day. Please take as directed. You are also being prescribed Oxycodone 5mg, you may take every 6 hours as needed for severe pain. For mild to moderate pain, you may use extra strength Tylenol, not to exceed 4000mg in a 24 hour period. It is advised that you wear supportive but not restrictive underwear and I would encourage you to use place an ice pack/cool pack under the scrotum to help reduce swelling. Home health has been arranged to teach wound care to your family member who will be changing you packing. You also have an appointment set up with the wound care clinic and urology. Please keep all follow up appointments as they are made. If you cannot make an appointment for whatever reason, please call the office to reschedule. It is recommended that you follow up with your primary care provider within 1 week of discharge. If you have any questions or concerns following your discharge, please contact the nonemergency number listed on your discharge paperwork. In the event of a medical emergency, call 911. Pending Studies at Discharge: Yes Studies:: wound culture Stand-Alone Forms: My [facility], Smoking Cessation Medications and DC Order Prescriptions: New cefdinir 300 mg capsule 300 mg PO BID 10 Days Qty: 20 0RF doxycycline hyclate 100 mg capsule 100 mg PO BID 10 Days Qty: 20 0RF metronidazole 500 mg tablet 500 mg PO Q8H Qty: 30 0RF oxycodone 5 mg tablet 5 mg PO Q6H PRN (Reason: pain (scale score 7-10)) Qty: 10 0RF Continued (DME) pen needle, diabetic [BD Ultra-Fine Short Pen Needle] 31 gauge x 5/16" needle See Dose Instructions .ROUTE .MEDSUPPLY Qty: 200 5RF Dose Instruction: As directed Rx Instructions: use three times daily as directed (DME) CPAP Supplies See Rx Instructions .Route .MEDSUPPLY Qty: 1 0RF Rx Instructions: Full face mask with head gear, Airsupply tubing, disposable and nondisposable filters, interface and water chamber DX:OSMAN clopidogrel 75 mg tablet 75 mg PO DAILY Qty: 90 3RF rosuvastatin 40 mg tablet 40 mg PO DAILY Qty: 90 3RF Eliquis 5 mg tablet 5 mg PO BID Qty: 180 3RF allopurinol 100 mg tablet 100 mg PO DAILY Qty: 90 3RF carvedilol 25 mg tablet 25 mg PO BID Qty: 180 3RF Rx Instructions: must administer with a meal/food bumetanide 2 mg tablet See Rx Instructions .ROUTE .COMPLEX Qty: 270 0RF Hold Instructions: MEAGHAN Dose Instruction: TAKE 1 & 1/2 (ONE & ONE-HALF) TABLETS BY MOUTH TWICE DAILY Rx Instructions: TAKE 1 & 1/2 (ONE & ONE-HALF) TABLETS BY MOUTH TWICE DAILY insulin glargine [Lantus Solostar U-100 Insulin] 100 unit/mL (3 mL) insulin pen 42 unit subcut BID Qty: 60 3RF insulin aspart U-100 [Novolog FlexPen U-100 Insulin] 100 unit/mL (3 mL) insulin pen 32 unit subcut BID Qty: 45 3RF (DME) Dexcom G6 Transmitter Device See Rx Instructions .Route Qty: 1 0RF Rx Instructions: As directed check BS 4x/day Dx E11.9 (DME) Dexcom G6 Sensor Device See Rx Instructions .Route Qty: 3 5RF Rx Instructions: As directed Test 4 x a day and Dx E11.9 (DME) Dexcom G6 Core Shaper Misc See Rx Instructions .Route Qty: 1 0RF Rx Instructions: As directed test 4 x/day and Dx E11.9 Entresto 97-103 mg tablet 0.5 tab PO BID Hold Instructions: MEAGHAN/Hyperkalemia ergocalciferol (vitamin D2) 1,250 mcg (50,000 unit) capsule 50,000 unit PO WEEKLY Qty: 14 2RF amlodipine 10 mg tablet 5 mg PO DAILY Qty: 90 1RF Align 4 mg capsule 4 mg PO BID Qty: 60 0RF Discontinued clindamycin HCl 300 mg capsule 300 mg PO Q6H Qty: 40 0RF Discharge Orders: Discharge Order (Routine); Ordered 06/13/22 Ordered By: Macrina Dudley Admission Data Admit Date/Time: 06/12/22 09:05 Attending Provider: Colin Perez Admit Provider: Ady Tolliver Primary Care Provider: Chava Stark Other Providers: Abe Robledo ; Ady Tolliver ; [facility] Coding Level of Care Code HOSP INP/OBS DISCH >30 MIN Diagnoses Abscess of scrotum N49.2 Poorly controlled diabetes mellitus E11.65 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 Hypokalemia E87.6
== END 2022-06-13 16:03 | disposition home health service (06) ==
LOC: 3W 14:31 → ED 14:31 → SUATTDRO 21:41 → 3W 23:15 → SUATTDRO 06-12 09:05